=== PATIENT | female | born 1955 | race African-American/Black ===

== ENCOUNTER 2018-06-28 12:25 | Inpatient (IN) | payer OTHER ==
--- NOTE | 2018-06-28 13:58 | RAD REPORT ---
EXAM DESCRIPTION: CT - Head Brain Wo Cont - 06/28/2018 1:30 pm CLINICAL HISTORY: Transient alteration of awareness COMPARISON: CT head July 2014 TECHNIQUE: Axial 5 mm thick images of the head were obtained without IV contrast. All CT scans are performed using dose optimization technique as appropriate and may include automated exposure control or mA/KV adjustment according to patient size. FINDINGS: No acute intracranial hemorrhage is present. There is is a large CSF collection filling th e anterior cranial fossa on the left. Patient has either cystic encephalomalacia or resection of the left frontal lobe. There are postsurgical changes overlying the left frontal bone. Patient has signif icant underlying atrophy and chronic ischemic changes with progressive volume loss since 2014. No acu te cerebral edema findings. There is no cortical edema or sulcal effacement. Ventricles have increase d in proportion to the amount of volume loss. Chronic ischemic changes are also seen as progressive. A 12 millimeter hyperdense rounded mass is present along the floor of the left anterior cranial fossa within remnant of left frontal lobe. There is a 2 centimeter heterogeneous predominantly hyperdense mass along the medial margin of the frontal horn lateral ventricle. This could be in the right fronta l lobe or genu of the corpus callosum. Mass may be contiguous with the left frontal lobe mass as a si ngle hourglass shaped mass. This is new from prior imaging. Etiology of the mass is unknown. No histo ry is available as to the reason for the left frontal surgical changes. Mastoid air cells and visualized portions of the paranasal sinuses are clear. No acute bony findings. IMPRESSION: No hemorrhage, edema or acute intracranial finding seen. Large area of cystic encephalomalacia/left frontal lobe resection matching prior imaging. New mass or masses present along the anterior midline. There is a 2 centimeter mass in the region of the genu corpus callosum and in the medial floor of remnant left frontal lobe tissue. This may be 2 a djacent masses or a single hourglass shaped mass. Etiology of the mass is unknown. There is no significant mass effect or edema related to this mass wh ich is probably unrelated to the acute clinical presentation. Patient has advanced atrophy and chronic ischemic change that has progressed since 2014.
--- NOTE | 2018-06-28 14:11 | RAD REPORT ---
EXAM DESCRIPTION: RAD - Chest Single View - 06/28/2018 1:38 pm CLINICAL HISTORY: Anorexia, mole A's, declining state COMPARISON: April 2014 TECHNIQUE: AP portable chest image was obtained 1334 hour . FINDINGS: Is interstitial alveolar opacification is present in the left lung base. Lung tomas are o therwise clear of an acute process. A few small granulomas are present. Baseline interstitial pattern is not substantially different from comparison. Heart and vasculature are normal. No measurable pleu ral effusion and no pneumothorax. No acute bony abnormality seen. No acute aortic findings suspected. IMPRESSION: Small to moderate size left lower lung field pneumonia.
[2018-06-28] MEDS ORDERED: NA CHLORIDE 0.9% 1,000 ML ONE (14:13)
[2018-06-28 14:14] LABS: Barbiturates NEGATIVE (NEGATIVE); Benzodiazepines NEGATIVE (NEGATIVE); Cocaine NEGATIVE (NEGATIVE); METHAMPHETAM NEGATIVE (NEGATIVE); Methadone NEGATIVE (NEGATIVE); Opiates NEGATIVE (NEGATIVE); Phencyclidine NEGATIVE (NEGATIVE); THC Cannibis NEGATIVE (NEGATIVE)
[2018-06-28 14:15] LABS: Urine Amorphous Sediment 2+ /HPF (NONE SEEN); Urine Bacteria <20 /HPF (<20); Urine Culture Reflex Order NOT NEEDED; Urine Mucus 2+ /HPF (NONE SEEN)
[2018-06-28 14:16] LABS: Urine Blood TRACE (NEG); Urine Glucose NEGATIVE (NEG); Urine Protein 1+ (NEG); Urine Specific Gravity 1.015 (1.005-1.030)
[2018-06-28 14:18] LABS: Protime INR 3.38
[2018-06-28 14:54] LABS: Albumin 2.6 g/dL (3.4-5.0); Bilirubin Direct 0.2 mg/dL (0-0.2); Bilirubin Total 0.6 mg/dL (0.2-1.0); Magnesium 3.4 mg/dL (1.8-2.4); Potassium 4.1 mmol/L (3.5-5.1); Protein, Total 8.8 g/dL (6.4-8.2); Troponin (Emerg Dept Use Only) 0.04 ng/mL (0.0-0.045)
[2018-06-28 15:15] LABS: Absolute Lymphocytes (CBC) 1.2 K/uL (0.7-4.9); Absolute Neutrophil 8.6 K/uL (1.8-8.0); Basophils % 0.2 % (0-1.3); Eosinophils % 0.1 % (0-4.4); Hematocrit 43.3 % (36.0-45.0); Lymphocytes % 10.8 % (15.3-44.8); MPV 11.9 fL (7.6-11.3); Monocytes % 9.1 % (3.3-12.3); RBC Red Blood Cell Count 5.24 M/uL (3.86-4.86)
[2018-06-28] MEDS ORDERED: CEFTRIAXONE/SWI 1gm 1 GM/10 ML SYR ONE ×2 (15:59→16:08)
[2018-06-28] MEDS ORDERED: AZITHROMYCIN 500 MG/250 ML BAG ONE (15:59)
[2018-06-28 16:27] LABS: Anisocytosis 1+; Blood Morphology Comment NOTED (NOT SEEN); Platelet Estimate ADEQ; Platelets, Giant FEW; Poikilocytosis 1+; Smudge Cells PRESENT; Toxic Granulation NOTED
[2018-06-28 16:30] LABS: Burr Cells 1+
--- NOTE | 2018-06-28 16:32 | ER ---
Nurse's Notes [facility] Name: Clemencia Terry Age: 63 yrs Sex: Female : 1955 Arrival Date: 06/28/2018 Time: 12:32 Bed 6 Private MD: Diagnosis: Hypernatremia;Hyperchloremia;dehydration;Acute Left Lower lobe Pneumonia Presentation: 06/28 12:32 Presenting complaint: EMS states: Pt has not eaten in 5 days, family wants a PEG tube jl7 placed. Transition of care: patient was received from another setting of care (long-term care facility)[facility]. Onset of symptoms was June 28, 2018. Risk Assessment: Do you want to hurt yourself or someone else? Patient reports no desire to harm self or others. Initial Sepsis Screen: Does the patient meet any 2 criteria? No. Patient's initial sepsis screen is negative. Does the patient have a suspected source of infection? No. Patient's initial sepsis screen is negative. Care prior to arrival: IV initiated. 22 GA, in the right antecubital area. 12:32 [email or web address] 12:32 Acuity: KAUSHIK 3 jl7 Triage Assessment: 12:38 General: Appears in no apparent distress. uncomfortable, Behavior is calm. Pain: Unable [facility] to use pain scale. Does not appear to understand pain scale. EENT: No signs and/or symptoms were reported regarding the EENT system. Neuro: Level of Consciousness is awake, alert. Cardiovascular: Patient's skin is warm and dry. Respiratory: Airway is patent Respiratory effort is even, unlabored, Respiratory pattern is regular, symmetrical. GI: Abdomen is flat, non-distended. Derm: Skin is dry, Skin is normal, Skin temperature is warm. Historical: - Allergies: 12:36 No Known Allergies; jl7 - Home Meds: 12:38 atorvastatin 40 mg oral tab 1 tab once daily [Active]; famotidine 20 mg Oral tab 1 tab jl7 2 times per day [Active]; Remeron 15 mg Oral tab 1 tab once daily [Active]; - PMHx: 12:36 TIA; Depression; Hyperlipidemia; Mental Disorder; jl7 - PSHx: 12:36 Cholecystectomy; Malignant brain tumor removed; jl7 - Immunization history:: Adult Immunizations up to date. - Social history:: Smoking status: Patient/guardian denies using tobacco. - Ebola Screening: : No symptoms or risks identified at this time. - Family history:: not pertinent. - Hospitalizations: : No recent hospitalization is reported. - History obtained from: daughter, [place] record. Screenin:15 Abuse screen: Denies threats or abuse. Denies injuries from another. Nutritional jl7 screening: No deficits noted. Tuberculosis screening: No symptoms or risk factors identified. Fall Risk IV access (20 points). Total Luong Fall Scale indicates No Risk (0-24 pts). Assessment: 12:40 General: See triage assessment. jl7 13:15 Reassessment: Rosmery Terry is the pt's POA, , and states "She failed a jl7 swallow study and that's why we are getting the feeding tube." POA transferred to Dr. Rivera at this time. 14:30 Reassessment: Patient appears in no apparent distress at this time. No changes from jl7 previously documented assessment. Patient and/or family updated on plan of care and expected duration. Pain level reassessed. Patient is alert, oriented x 3, equal unlabored respirations, skin warm/dry/pink. 15:30 Reassessment: Patient appears in no apparent distress at this time. Patient is alert, jl7 oriented x 3, equal unlabored respirations, skin warm/dry/pink. 16:30 Reassessment: Pt laying in bed, respirations even and unlabored, no signs of distress jl7 noted at this time. Pt's POA Rosmery Terry at bedside. Dr. Rivera discussed POC with POA. 17:41 Reassessment: Pt to MRI via stretcher. jl7 17:51 Reassessment: Pt returned from MRI. Pt's daughter, sister and friend at bedside at this jl7 time. No signs of distress noted. 18:17 Reassessment: Attempted to call report, placed on hold for 10 minutes. jl7 20:21 Reassessment: Report given to CAMPBELL Izaguirre. ao Vital Signs: 12:38 BP 144 / 100; Pulse 110; Resp 22 S; Pulse Ox 96% on R/A; jl7 13:30 BP 145 / 82; Pulse 109; Resp 16 S; Temp 98.5(A); Pulse Ox 99% on R/A; jl7 14:12 BP 161 / 82; Pulse 113; Resp 16 S; Pulse Ox 100% on R/A; jl7 15:30 BP 158 / 82; Pulse 107; Resp 19; Pulse Ox 100% ; jl7 16:01 BP 157 / 65; Pulse 99; Resp 16 S; Pulse Ox 99% on R/A; jl7 16:45 BP 151 / 69; Pulse 95; Resp 16 S; Pulse Ox 100% on R/A; jl7 17:40 BP 142 / 85; Pulse 102; Resp 16 S; Pulse Ox 100% on R/A; jl7 19:24 BP 150 / 74; Pulse 96; Resp 16; Pulse Ox 100% ; Pain 0/10; ao ED Course: 12:32 Patient arrived in ED. jl7 12:34 Triage completed. jl7 12:38 Arm band placed on right wrist. jl7 12:39 Roel Rivera MD is Attending Physician. wa 13:05 Skin assessment. aj 13:15 Patient has correct armband on for positive identification. Placed in gown. Bed in low jl7 position. Call light in reach. Side rails up X2. cafeteria monitor on. Pulse ox on. NIBP on. Warm blanket given. 13:20 Greg Hampton RN is Primary Nurse. jl7 13:31 CT Head Brain wo Cont In Process Unspecified. EDMS 13:31 CT completed. Patient tolerated procedure well. Patient moved to CT via stretcher. sj Patient moved back from CT. 13:34 X-ray completed. Portable x-ray completed in exam room. Patient tolerated procedure mh1 well. 13:36 Chest Single View XRAY In Process Unspecified. EDMS 13:39 EKG done, by agriculture laboratory technician. reviewed by Roel Rivera MD. tc 14:12 Initial lab(s) drawn, by ct, sent to lab. Straight cath inserted, using sterile jl7 technique, 16 Fr. Specimen obtained. Returned zaire urine. Patient tolerated poorly. Inserted saline lock: 22 gauge in right antecubital area, using aseptic technique. Blood collected. 16:29 Tashi Berg MD is Hospitalizing Provider. wa 17:32 Patient moved to MRI via stretcher. em2 17:39 Brain Wo Cont In Process Unspecified. EDMS 19:00 Report given to CAMPBELL Haskins and CAMPBELL Lopez. jl7 19:01 Primary Nurse role handed off by Greg Hampton RN jl7 19:23 John Quiroga RN is Primary Nurse. ao 20:22 Patient admitted, IV remains in place. ao Administered Medications: 14:11 Drug: NS 0.9% 1000 ml Route: IV; Rate: 1 bolus; Site: right antecubital; jl7 15:30 Follow up: IV Status: Completed infusion jl7 15:50 Drug: Rocephin 2 grams Route: IV; Rate: calculated rate; Site: right antecubital; jl7 15:54 Follow up: Response: No adverse reaction; IV Status: Completed infusion jl7 15:55 Drug: Zithromax 500 mg Route: IVPB; Infused Over: 1 hrs; Site: right antecubital; jl7 16:55 Follow up: Response: No adverse reaction; IV Status: Completed infusion jl7 15:55 Not Given (Duplicate Order): Rocephin - (cefTRIAXone) 2 grams IVPB once over 30 mins; jl7 (mix in 100 mL NS) Outcome: 16:31 Decision to Hospitalize by Provider. wa 20:21 Admitted to Med/surg accompanied by tech, room 418, with chart, Report called to karuna Izaguirre RN 20:21 Condition: stable 20:21 Instructed on the need for admit. 20:23 Patient left the ED. ao Signatures: Dispatcher [employer] EDMS Radha Us RN Nanci Moreno mh1 Iva Courtney Enrique 2 Laurel Thakur, welding machine operator electron beam EKG [facility] John Quiroga RN RN ao Leal, Jahala, RN RN jl7 Roel Rivera MD MD wa Corrections: (The following items were deleted from the chart) 17:43 16:30 Reassessment: Pt laying in bed, respirations even and unlabored, no signs of puma distress noted at this time. Pt's sister/POA Rosmery Terry at bedside. Dr. Rivera discussed POC with POA. puma
--- NOTE | 2018-06-28 16:32 | EDPHYS ---
Physician Documentation [facility] Name: Clemencia Terry Age: 63 yrs Sex: Female : 1955 Arrival Date: 06/28/2018 Time: 12:32 Bed 6 Private MD: ED Physician Roel Rivera HPI: 06/28 16:13 This 63 yrs old Black Female presents to ER via EMS with complaints of New PEG Tube. wa 16:13 pt non-verbal and unable to give a history at baseline. history obtained from [place] notes wa and pt's daughter (power of consumer attorney), Ms. Rosmery Terry. pt has not been eating x [address] Snyder (GI) for PEG but cannot see pt until 4 days from now so came to ED for further eval. Denies mental changes that are recent from baseline. denies SZ. denies cough, SOB, fever. denies vomiting or diarrhea. denies swelling. Onset: The symptoms/episode began/occurred 4 day(s) ago. Severity of symptoms: At their worst the symptoms were moderate in the emergency department the symptoms are unchanged. It is unknown whether or not the patient has had similar symptoms in the past. The patient has not recently seen a physician. h/o glioblastoma with lobar resection in 1993. has been in [place] x 4-1/2 years. per daughter, quit been able to express self or walk by self this past March. . Historical: - Allergies: 12:36 No Known Allergies; jl7 - Home Meds: 12:38 atorvastatin 40 mg oral tab 1 tab once daily [Active]; famotidine 20 mg Oral tab 1 tab jl7 2 times per day [Active]; Remeron 15 mg Oral tab 1 tab once daily [Active]; - PMHx: 12:36 TIA; Depression; Hyperlipidemia; Mental Disorder; jl7 - PSHx: 12:36 Cholecystectomy; Malignant brain tumor removed; jl7 - Immunization history:: Adult Immunizations up to date. - Social history:: Smoking status: Patient/guardian denies using tobacco. - Ebola Screening: : No symptoms or risks identified at this time. - Family history:: not pertinent. - Hospitalizations: : No recent hospitalization is reported. - History obtained from: daughter, [place] record. ROS: 16:25 Constitutional: Negative for fever, chills, and weight loss. wa 16:25 Unable to obtain ROS due to patient's inability to understand questions, non-verbal, non-communicative patient. Exam: 16:25 Head/Face: Normocephalic, atraumatic. Eyes: Pupils equal round and reactive to light, wa extra-ocular motions intact. Lids and lashes normal. Conjunctiva and sclera are non-icteric and not injected. Cornea within normal limits. Periorbital areas with no swelling, redness, or edema. ENT: Nares patent. No nasal discharge, no septal abnormalities noted. Tympanic membranes are normal and external auditory canals are clear. Oropharynx with no redness, swelling, or masses, exudates, or evidence of obstruction, uvula midline. Mucous membranes moist. Neck: Trachea midline, no thyromegaly or masses palpated, and no cervical lymphadenopathy. Supple, full range of motion without nuchal rigidity, or vertebral point tenderness. No Meningismus. Cardiovascular: Regular rate and rhythm with a normal S1 and S2. No gallops, murmurs, or rubs. Normal PMI, no JVD. No pulse deficits. Respiratory: Lungs have equal breath sounds bilaterally, clear to auscultation and percussion. No rales, rhonchi or wheezes noted. No increased work of breathing, no retractions or nasal flaring. Abdomen/GI: Soft, non-tender, with normal bowel sounds. No distension or tympany. No guarding or rebound. No evidence of tenderness throughout. Back: No spinal tenderness. No costovertebral tenderness. Full range of motion. MS/ Extremity: Pulses equal, no cyanosis. Neurovascular intact. Full, normal range of motion. 16:25 Constitutional: The patient appears alert. 16:25 ENT: Posterior pharynx: very dry mucosa. 16:25 Skin: noted 2 small areas of stage 1 gluteal ulcers. dressing in place. no swelling, redness, or pus exudate. Dry. 16:25 Neuro: alert. tracks doctor's voice and actions. does not speak or respond appropriately to commands however. Vital Signs: 12:38 BP 144 / 100; Pulse 110; Resp 22 S; Pulse Ox 96% on R/A; jl7 13:30 BP 145 / 82; Pulse 109; Resp 16 S; Temp 98.5(A); Pulse Ox 99% on R/A; jl7 14:12 BP 161 / 82; Pulse 113; Resp 16 S; Pulse Ox 100% on R/A; jl7 15:30 BP 158 / 82; Pulse 107; Resp 19; Pulse Ox 100% ; jl7 16:01 BP 157 / 65; Pulse 99; Resp 16 S; Pulse Ox 99% on R/A; jl7 16:45 BP 151 / 69; Pulse 95; Resp 16 S; Pulse Ox 100% on R/A; jl7 17:40 BP 142 / 85; Pulse 102; Resp 16 S; Pulse Ox 100% on R/A; jl7 19:24 BP 150 / 74; Pulse 96; Resp 16; Pulse Ox 100% ; Pain 0/10; ao MDM: 12:39 Patient medically screened. md 16:28 Differential Diagnosis failure to thrive? r/o acute pathology to explain acute baseline md changes of status. reassess. Data reviewed: vital signs, nurses notes. 16:32 Test interpretation: by ED physician or midlevel provider: ECG, plain radiologic md studies, noted for elevated CPK, AST, Alk Phos. Elevated Cr. Na. Cl. Elevated INR. CXR: LLL pna. Head CT: 2 new mass lesions, 2 cm and [address] from 2014. . Physician consultation: Tashi Berg MD. Admission orders: after a detailed discussion of the patient's condition and case, the admit orders are written by me. 16:33 ED course: received a liter of saline initially. will admit for eval of hypernatremia wa with slow resuscitation to avoid cerebral edema. abx given to cover pna. will need consultation with GI for PEG. pt apparently had failed a swallow study in [place]. Daughter with power of consumer attorney states her family will not push for aggressive tumor treatment. 17:51 Test interpretation: by ED physician or midlevel provider: EKG: interp by me. sinus md tach. HR 108. inferior lateral ST depressions noted. consider ischemia. 06/28 13:12 Order name: UDS; Complete Time: 14:57 md 06/28 13:12 Order name: Basic Metabolic Panel; Complete Time: 15:12 06/28 13:12 Order name: CBC with Diff md 06/28 13:12 Order name: CPK; Complete Time: 16:09 06/28 13:12 Order name: Hepatic Function; Complete Time: 16:09 06/28 13:12 Order name: Lipase; Complete Time: 16:09 06/28 13:12 Order name: CT Head Brain wo Cont; Complete Time: 14:57 06/28 13:12 Order name: Magnesium; Complete Time: 16:09 06/28 13:12 Order name: Protime (+inr); Complete Time: 14:57 06/28 13:12 Order name: Troponin (emerg Dept Use Only); Complete Time: 16:09 06/28 13:12 Order name: Urine Microscopic Only; Complete Time: 14:57 06/28 13:13 Order name: Chest Single View XRAY; Complete Time: 15:11 06/28 14:03 Order name: Urine Dipstick--Ancillary (enter results); Complete Time: 14:57 06/28 15:16 Order name: Manual Differential EDMS 06/28 13:12 Order name: EKG; Complete Time: 13:13 06/28 13:12 Order name: Cardiac monitoring; Complete Time: 14:12 06/28 13:12 Order name: EKG - Nurse/Tech; Complete Time: 14:12 06/28 13:12 Order name: IV Saline Lock; Complete Time: 14:12 06/28 13:12 Order name: Labs collected and sent; Complete Time: 14:11 06/28 13:12 Order name: NPO; Complete Time: 14:11 06/28 13:12 Order name: O2 Sat Monitoring; Complete Time: 14:11 06/28 13:12 Order name: Urine Dipstick-Ancillary (obtain specimen); Complete Time: 14:11 06/28 16:29 Order name: Brain Wo Cont EDMS Administered Medications: 14:11 Drug: NS 0.9% 1000 ml Route: IV; Rate: 1 bolus; Site: right antecubital; jl7 15:30 Follow up: IV Status: Completed infusion jl7 15:50 Drug: Rocephin 2 grams Route: IV; Rate: calculated rate; Site: right antecubital; jl7 15:54 Follow up: Response: No adverse reaction; IV Status: Completed infusion jl7 15:55 Drug: Zithromax 500 mg Route: IVPB; Infused Over: 1 hrs; Site: right antecubital; jl7 16:55 Follow up: Response: No adverse reaction; IV Status: Completed infusion jl7 15:55 Not Given (Duplicate Order): Rocephin - (cefTRIAXone) 2 grams IVPB once over 30 mins; jl7 (mix in 100 mL NS) Disposition: 06/28/18 16:31 Hospitalization ordered by Tashi Berg for Inpatient Admission. Preliminary diagnosis are Hypernatremia, Hyperchloremia, dehydration, Acute Left Lower lobe Pneumonia. - Bed requested for Telemetry/MedSurg (Inpatient). - Status is Inpatient Admission. ao - Condition is Fair. - Problem is new. - Symptoms have improved. UTI on Admission? No Signatures: Dispatcher [employer] EDMS Elma Hinojosa Alex RN Greg Montelongo RN RN jl7 Roel Rivera MD MD wa Corrections: (The following items were deleted from the chart) 17:53 16:31 Hospitalization Ordered by Tashi Berg MD for Inpatient Admission. Preliminary bd diagnosis is Hypernatremia; Hyperchloremia; dehydration; Acute Left Lower lobe Pneumonia. Bed requested for Telemetry/MedSurg (Inpatient). Status is Inpatient Admission. Condition is Fair. Problem is new. Symptoms have improved. UTI on Admission? No. wa 20:23 17:53 06/28/2018 16:31 Hospitalization Ordered by Tashi Berg MD for Inpatient ao Admission. Preliminary diagnosis is Hypernatremia; Hyperchloremia; dehydration; Acute Left Lower lobe Pneumonia. Bed requested for Telemetry/MedSurg (Inpatient). Status is Inpatient Admission. Condition is Fair. Problem is new. Symptoms have improved. UTI on Admission? No. bd
--- NOTE | 2018-06-28 17:07 | EKG ---
Test Date: 2018-06-28 Test Time: 13:32:48 Therapeutic Recreation Assistant: SANDY MEASUREMENT RESULTS: Intervals: Rate: 108 NJ: 124 QRSD: 82 QT: 314 QTc: 420 [place]: P: 75 NJ: 124 QRS: 55 T: 79 INTERPRETIVE STATEMENTS: Sinus tachycardia Right atrial enlargement Marked ST abnormality, possible inferior subendocardial injury Abnormal ECG Compared to ECG 08/15/2014 08:12:03 Atrial abnormality now present ST (T wave) deviation now present Sinus rhythm no longer present Electronically Signed On 06-28-18 17:06:44 SET UP AND LAY OUT INSPECTOR by Max Plata
--- NOTE | 2018-06-28 20:25 | RAD REPORT ---
EXAM DESCRIPTION: MRI - Brain Wo Cont - 06/28/2018 5:44 pm CLINICAL HISTORY: Abnormal CT, altered mental status, slurred speech, declining state Since the earlier CT study, additional clinical information has become available indicating history o f glioblastoma with resection COMPARISON: CT head June 28, 2018, MRI brain April 2014 TECHNIQUE: Sagittal T1-weighted images were obtained along with axial PD, heavily T2-weighted and T2 -FLAIR images. Axial DWI and ADC mapping sequences were also obtained along with coronal heavily T2-w eighted images. FINDINGS: Diffusion-weighted imaging shows no acute infarction change. Again noted is the large post surgical cavity from resection of most of the left frontal lobe. The large cystic postoperative cavit y communicates with the frontal horn left lateral ventricle. Patient has baseline significant atrophy and chronic ischemic change. Extensive baseline white matter signal abnormality in both the right fr ontal lobe and remnant left frontal lobe. No edema or shift of midline structures. Signal voids are seen as a normal finding in the major intra cranial vessels. In the medial left-side anterior cranial fossa, within the remnant left frontal lobe, there is a 2.0 x 1.4 centimeter lobulated mass. Along the anterior midline, probably involving or arising from the g enu of the corpus callosum there is a 20 x 18 lobulated mass. These are the correlates to the CT find ing. The masses are in close proximity but are not a definitive single lesion. Imaging characteristic s are identical. There is a hypointense peripheral rim on T2/IR sequences. Both masses are centrally hyperintense on T2 imaging. T1 imaging is heterogeneous with peripheral hyperintense and central hypo intense signal. Mastoid air cells and paranasal sinuses are clear. No acute globe or orbital content abnormality. IMPRESSION: Within the remnant left frontal lobe and in the midline at the genu of the corpus callos um, two lobulated masses are present as correlates to the CT findings. 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 These may have developed as the sequela of radiati on therapy. The imaging characteristics are not typical for malignancy. Neither lesion is felt to be related to the acute clinical presentation. No acute infarction changes are present. Patient has prominent atrophy and chronic ischemic changes i n addition to the postsurgical and post therapy changes involving the frontal lobes.
[2018-06-28 21:05] VITALS: BMI 18.1
[2018-06-28] MEDS ORDERED: D5 0.45 NS 1,000 ML IV SCH (22:09)
[2018-06-29 04:44] LABS: Absolute Lymphocytes (CBC) 1.2 K/uL (0.7-4.9); Absolute Neutrophil 10.2 K/uL (1.8-8.0); Basophils % 0.1 % (0-1.3); Eosinophils % 0.3 % (0-4.4); Hematocrit 34.9 % (36.0-45.0); Lymphocytes % 9.7 % (15.3-44.8); MPV 10.9 fL (7.6-11.3); Monocytes % 8.2 % (3.3-12.3); RBC Red Blood Cell Count 4.26 M/uL (3.86-4.86)
[2018-06-29 05:02] LABS: Albumin 2.1 g/dL (3.4-5.0); Bilirubin Total 0.4 mg/dL (0.2-1.0); Potassium 3.4 mmol/L (3.5-5.1)
[2018-06-29] MEDS ORDERED: D5W 1,000 ML IV SCH ×2 (06:00)
[2018-06-29] MEDS: KCL 20 MEQ/100 mL IVPB 20 MEQ/100 ML BAG IV SCH ×2 (08:00→10:00)
--- NOTE | 2018-06-29 09:49 | P.HP ---
Certification for Inpatient Patient admitted to: Inpatient With expected LOS: >2 Midnights Patient will require the following post-hospital care: Other Practitioner: I am a practitioner with admitting privileges, knowledge of patient current condition, hospital course, and medical plan of care. Services: Services provided to patient in accordance with Admission requirements found in Title 42 Section 412.3 of the Code of Federal Regulations Patient History Date of Service: 06/28/18 Reason for admission: DYSPHAGIA History of Present Illness: PATIENT IS A 63-YEAR-OLD FEMALE WHO LIVES AT A [facility]. SHE IS IN THE [facility] BECAUSE OF TREATMENT FOR BRAIN CANCER WITH SECONDARY RADIATION AND EARLY DEMENTIA. SHE APPARENTLY HAS NECROTIC BRAIN TISSUE BECAUSE OF THE RADIATION. HER NEUROLOGIC STATUS HAS SLOWLY BEEN DECLINING. SHE STARTED ASPIRATING AND SHE WAS SENT INTO THE HOSPITAL FOR EVALUATION. HER LABS ALSO REVEALED HYPERNATREMIA. SHE WILL BE ADMITTED TO THE HOSPITAL FOR TREATMENT OF THE HYPERNATREMIA AND DYSPHAGIA. WILL GET GENERAL SURGERY FOR PEG TUBE PLACEMENT. Allergies No Known Drug Allergies Allergy (Verified 05/14/14 20:24) Unknown No Known Allergies Allergy (Uncoded 08/31/14 00:56) Unknown Home Medications: Atorvastatin Calcium [Lipitor*] 40 mg PO BEDTIME 12/02/13 Famotidine [Pepcid*] 20 mg PO BID 05/14/14 Acetaminophen [Tylenol] 650 mg PO Q4HP PRN 06/29/18 Aspirin Chewable [Aspirin Chewable*] 81 mg PO DAILY 06/29/18 Hydrocortisone Cream [Hydrocortisone 1% Cream*] 1 appl TOP Q4HP PRN 06/29/18 Methylphenidate HCl [Ritalin] 5 mg PO DAILY 06/29/18 Mirtazapine [Remeron*] 15 mg PO BEDTIME 06/29/18 Potassium Chloride Liquid 10 meq PO DAILY 06/29/18 traMADol HCL [Ultram*] 50 mg PO Q8HP PRN 06/29/18 - Past Medical/Surgical History Has patient received pneumonia vaccine in the past: Yes Diabetic: No -: TIA -: Cutaneous Candidiasis -: Cancer of Brain -: Hyperlipidemia -: Brain tumor removal -: gall bladder stones removed -: tubal ligation - Family History Father Medical History: Heart disease, Diabetes, Kidney disease, Other (see notes) Notes: Alzheimers Mother Medical History: Hypertension Brother Medical History: Heart disease Notes: cardiac stent - Social History Smoking Status: Never smoker Alcohol use: No CD- Drugs: No Caffeine use: No Place of Residence: [place] Review of Systems 10-point ROS is otherwise unremarkable Physical Examination - Vital Signs Temperature: 97 F Blood Pressure: 140/60 Pulse: 82 Respirations: 18 Pulse Ox (%): 100 - Physical Exam General: Alert, In no apparent distress, Demented HEENT: Atraumatic, PERRLA, Mucous membr. moist/pink, EOMI, Sclerae nonicteric Neck: Supple, 2+ carotid pulse no bruit, No LAD, Without JVD or thyroid abnormality Respiratory: Clear to auscultation bilaterally, Normal air movement Cardiovascular: Regular rate/rhythm, Normal S1 S2, No murmurs Gastrointestinal: Normal bowel sounds, Soft and benign, Non-distended, No tenderness Musculoskeletal: No clubbing, No swelling, No tenderness Integumentary: No rashes Neurological: Sensation intact Lymphatics: No axilla or inguinal lymphadenopathy - Studies Laboratory Data (last 24 hrs) 06/28/18 14:00: PT 40.4 H, INR 3.38 06/28/18 14:00: WBC 10.8, Hgb 13.7, Hct 43.3, Plt Count 289 06/28/18 14:00: Sodium 168 H*, Potassium 4.1, BUN 117 H, Creatinine 1.56 H, Glucose 111 H, Magnesium 3.4 H, Total Bilirubin 0.6, AST 73 H, ALT 54, Alkaline Phosphatase 150 H, Lipase 502 H Assessment & Plan - Problems (Diagnosis) (1) Hypernatremia Current Visit: Yes Status: Acute (2) Cerebral vascular accident Current Visit: No Status: Acute (3) Confusion Onset Date: 05/14/14 Current Visit: No Status: Acute (4) Falls Onset Date: 05/14/14 Current Visit: No Status: Acute (5) Rhabdomyolysis Current Visit: No Status: Acute (6) Urinary tract infectious disease Current Visit: No Status: Acute - Plan 1. SURGERY CONSULTATION FOR PEG TUBE PLACEMENT 2. D5 WATER TO CORRECT SODIUM 3. SLIDING SCALE INSULIN NEEDED 4. MONITOR RENAL FUNCTION CLOSELY 5. DVT PROPHYLAXIS Discharge Plan: Home Plan to discharge in: 24 Hours - Advance Directives Does patient have a Living Will: No Does patient have a Durable POA for Healthcare: No - Code Status/Comfort Care Code Status Assessed: Yes Code Status: Full Code Comfort Measures: Palliative Care Critical Care: No Time Spent Managing PTS Care (In Minutes): 45
[2018-06-29 12:04] LABS: Potassium 3.2 mmol/L (3.5-5.1)
--- NOTE | 2018-06-29 16:25 | P.PN ---
Subjective Date of Service: 06/29/18 Chief Complaint: DYSPHAGIA Subjective: No new changes Patient seen and examined at bedside. Daughter at bedside. Chart reviewed and case discussed with nursing staff. Physical Examination - Vital Signs Temperature: 97 F Blood Pressure: 140/60 Pulse: 82 Respirations: 18 Pulse Ox (%): 100 - Studies Laboratory Data (last 24 hrs) 06/28/18 14:00: WBC 10.8 Assessment And Plan - Plan (1) Hypernatremia (2) Cerebral vascular accident (3) Confusion (4) Falls (5) Rhabdomyolysis (6) Urinary tract infectious disease Continue D5 water to correct sodium General surgery consulted for PEG tube placement. Will get in touch with surgery after electrolytes are improving Sliding scale insulin as needed Monitor renal function closely Fall precaution Discussed with family regarding goals of care. Daughter states that she is to full code at this time. They are waiting for patient's other son to come back from the [employer] to make further decisions. DVT prophylaxis: Lovenox GI prophylaxis: None Diet: NPO Disposition: Pending electrolyte correction, possible PEG placement by surgery.
[2018-06-29] MEDS: D5W 1,000 ML IV SCH ×2 (19:00→21:57)
[2018-06-29 21:41] LABS: BUN Blood Urea Nitrogen 60 mg/dL (7-18); Bicarbonate 29 mmol/L (21-32); Glucose Level 121 mg/dL (74-106); Potassium 3.8 mmol/L (3.5-5.1)
[2018-06-29 22:12] LABS: Sodium Level 164 mmol/L (136-145)
[2018-06-30 03:35] LABS: Absolute Lymphocytes (CBC) 1.4 K/uL (0.7-4.9); Absolute Monocytes 0.8 K/uL (0.1-1.3); Basophils % 0.5 % (0-1.3); Eosinophils % 2.9 % (0-4.4); Hematocrit 29.1 % (36.0-45.0); Lymphocytes % 12.1 % (15.3-44.8); MPV 11.2 fL (7.6-11.3); Monocytes % 6.6 % (3.3-12.3); RBC Red Blood Cell Count 3.55 M/uL (3.86-4.86)
[2018-06-30 03:49] LABS: ALT/SGPT 50 U/L (12-78); AST/SGOT 48 U/L (15-37); Alkaline Phosphatase 114 U/L (45-117); BUN Blood Urea Nitrogen 49 mg/dL (7-18); Bicarbonate 27 mmol/L (21-32); Bilirubin Total 0.6 mg/dL (0.2-1.0); Glucose Level 142 mg/dL (74-106); Potassium 3.5 mmol/L (3.5-5.1); Sodium Level 159 mmol/L (136-145)
[2018-06-30] MEDS ORDERED: KCL 20 MEQ/100 mL IVPB 20 MEQ/100 ML BAG IV SCH ×2 (04:00→13:00)
[2018-06-30 04:42] LABS: Blood Morphology Comment NOT SEEN (NOT SEEN); Platelet Estimate ADEQ
[2018-06-30] MEDS: D5W 1,000 ML IV SCH ×2 (06:33→17:07)
--- NOTE | 2018-06-30 16:11 | P.PN ---
Subjective Date of Service: 06/30/18 Chief Complaint: DYSPHAGIA Subjective: No C/O voiced Patient seen and examined at bedside. Daughter at bedside. Chart reviewed and case discussed with nursing staff. Patient a little more alert than yesterday. Per daughter, patient did speak a little to the daughter this morning. Review of Systems 10-point ROS is otherwise unremarkable Physical Examination - Vital Signs Temperature: 97.1 F Blood Pressure: 121/86 Pulse: 76 Respirations: 20 Pulse Ox (%): 99 - Physical Exam General: In no apparent distress, Unresponsive (Worse than baseline), Other ( Ill appearing) HEENT: PERRLA, EOMI Neck: Supple, JVD not distended Respiratory: Clear to auscultation bilaterally, Normal air movement Cardiovascular: Regular rate/rhythm, Normal S1 S2 Gastrointestinal: Normal bowel sounds, No tenderness Musculoskeletal: No tenderness Integumentary: No rashes Neurological: Normal speech, Normal tone, Normal affect Lymphatics: No axilla or inguinal lymphadenopathy Assessment And Plan - Plan (1) Hypernatremia (2) Cerebral vascular accident (3) Confusion (4) Falls (5) Rhabdomyolysis (6) Urinary tract infectious disease Continue D5 water to correct sodium, at 100 cc/hour General surgery consulted for PEG tube placement. Will get in touch with surgery after electrolytes are improving Sliding scale insulin as needed Monitor renal function closely Fall precaution Speech therapy consultation Discussed with family regarding goals of care. Daughter states that she is to remain a full code at this time. They are waiting for patient's other son to come back from the [employer] to make further decisions. DVT prophylaxis: Lovenox GI prophylaxis: None Diet: NPO Disposition: Pending electrolyte correction, possible PEG placement by surgery.
[2018-07-01] MEDS: D5W 1,000 ML IV SCH ×3 (06:02→19:53)
[2018-07-01 06:17] LABS: Absolute Lymphocytes (CBC) 1.5 K/uL (0.7-4.9); Absolute Monocytes 0.6 K/uL (0.1-1.3); Basophils % 0.1 % (0-1.3); Hematocrit 27.3 % (36.0-45.0); Lymphocytes % 12.9 % (15.3-44.8); MPV 11.5 fL (7.6-11.3); Monocytes % 5.6 % (3.3-12.3); RBC Red Blood Cell Count 3.37 M/uL (3.86-4.86)
[2018-07-01 06:21] LABS: ALT/SGPT 38 U/L (12-78); AST/SGOT 33 U/L (15-37); Albumin 1.9 g/dL (3.4-5.0); Alkaline Phosphatase 97 U/L (45-117); BUN Blood Urea Nitrogen 17 mg/dL (7-18); Bicarbonate 28 mmol/L (21-32); Bilirubin Total 0.7 mg/dL (0.2-1.0); Glucose Level 122 mg/dL (74-106); Potassium 3.6 mmol/L (3.5-5.1); Protein, Total 5.7 g/dL (6.4-8.2); Sodium Level 152 mmol/L (136-145)
[2018-07-01 07:31] LABS: Platelet Estimate ADEQ; Toxic Granulation 1+; Urine White Blood Cell Casts OK
[2018-07-01 07:32] LABS: Ovalocytes 1+
[2018-07-01 07:33] LABS: Blood Morphology Comment NOTED (NOT SEEN)
[2018-07-01] MEDS ORDERED: KCL 20 MEQ/100 mL IVPB 20 MEQ/100 ML BAG IV SCH (08:00)
--- NOTE | 2018-07-01 11:28 | P.PN ---
Subjective Date of Service: 07/01/18 Chief Complaint: DYSPHAGIA Subjective: No new changes, No C/O voiced Patient seen and examined at bedside. Daughter at bedside. Chart reviewed and case discussed with nursing staff. Review of Systems 10-point ROS is otherwise unremarkable Physical Examination - Vital Signs Temperature: 98.2 F Blood Pressure: 132/63 Pulse: 78 Respirations: 18 Pulse Ox (%): 98 - Physical Exam General: In no apparent distress, Demented, Other (Not conversating) HEENT: PERRLA, Mucous membr. moist/pink Neck: 2+ carotid pulse no bruit Respiratory: Clear to auscultation bilaterally, Normal air movement Cardiovascular: Regular rate/rhythm Gastrointestinal: Normal bowel sounds Musculoskeletal: No clubbing, No swelling Integumentary: Skin breakdown Assessment And Plan - Plan (1) Hypernatremia (2) Cerebral vascular accident (3) Confusion (4) Falls (5) Rhabdomyolysis (6) Urinary tract infectious disease Continue D5 water to correct sodium, at 100 cc/hour. Improving General surgery consulted for PEG tube placement. Will get in touch with surgery after electrolytes are improving Sliding scale insulin as needed Monitor renal function closely Fall precaution Speech therapy consulted, pending Discussed with family regarding goals of care. Daughter states that she is to remain a full code at this time. They are waiting for patient's other son to come back from the [employer] to make further decisions. DVT prophylaxis: Lovenox GI prophylaxis: None Diet: NPO Disposition: Pending electrolyte correction, possible PEG placement by surgery.
[2018-07-01] MEDS: Levofloxacin500mg IV 500 MG/100 ML BAG IV SCH (12:48)
[2018-07-02] MEDS: D5W 1,000 ML IV SCH ×2 (02:36→16:52)
[2018-07-02 06:12] LABS: Absolute Lymphocytes (CBC) 1.1 K/uL (0.7-4.9); Absolute Monocytes 0.5 K/uL (0.1-1.3); Absolute Neutrophil 7.7 K/uL (1.8-8.0); Basophils % 0.2 % (0-1.3); Eosinophils % 2.6 % (0-4.4); Hematocrit 27.9 % (36.0-45.0); Monocytes % 5.4 % (3.3-12.3); RBC Red Blood Cell Count 3.49 M/uL (3.86-4.86)
[2018-07-02 06:21] LABS: ALT/SGPT 30 U/L (12-78); AST/SGOT 23 U/L (15-37); Albumin 1.9 g/dL (3.4-5.0); Alkaline Phosphatase 92 U/L (45-117); BUN Blood Urea Nitrogen 8 mg/dL (7-18); Bicarbonate 29 mmol/L (21-32); Bilirubin Total 0.6 mg/dL (0.2-1.0); Glucose Level 126 mg/dL (74-106); Magnesium 1.9 mg/dL (1.8-2.4); Phosphorus 2.3 mg/dL (2.5-4.9); Potassium 3.5 mmol/L (3.5-5.1); Sodium Level 149 mmol/L (136-145)
[2018-07-02] MEDS ORDERED: POTASSIUM PHOS IN 0.9 % NACL 15 MMOL/250 ML BAG IV ONE ×2 (06:33→09:00)
[2018-07-02] MEDS: Levofloxacin500mg IV 500 MG/100 ML BAG IV SCH (12:00)
--- NOTE | 2018-07-02 17:57 | P.PN ---
Subjective Date of Service: 07/02/18 Chief Complaint: DYSPHAGIA Subjective: No new changes Patient seen and examined at bedside. Daughter at bedside. Chart reviewed and case discussed with nursing staff. Review of Systems 10-point ROS is otherwise unremarkable Physical Examination - Vital Signs Temperature: 97.7 F Blood Pressure: 103/55 Pulse: 91 Respirations: 16 Pulse Ox (%): 99 - Physical Exam General: In no apparent distress, Demented, Confused HEENT: Atraumatic, PERRLA, EOMI Neck: Supple, JVD not distended Respiratory: Clear to auscultation bilaterally, Normal air movement Cardiovascular: Regular rate/rhythm, Normal S1 S2 Gastrointestinal: Normal bowel sounds, No tenderness Musculoskeletal: No tenderness Integumentary: No rashes Neurological: Normal speech, Normal tone, Normal affect Lymphatics: No axilla or inguinal lymphadenopathy Assessment And Plan - Plan (1) Hypernatremia (2) Cerebral vascular accident (3) Confusion (4) Falls (5) Rhabdomyolysis (6) Urinary tract infectious disease Continue D5 water to correct sodium, at 100 cc/hour. Improving General surgery consulted for PEG tube placement. Will get in touch with surgery after electrolytes are improving Sliding scale insulin as needed Monitor renal function closely Fall precaution Speech therapy consulted, pending Discussed with family regarding goals of care. Daughter states that she is to remain a full code at this time. They are waiting for patient's other son to come back from the [employer] to make further decisions. DVT prophylaxis: Lovenox GI prophylaxis: None Diet: NPO Disposition: Pending electrolyte correction, possible PEG placement by surgery.
[2018-07-03] MEDS: D5W 1,000 ML IV SCH ×4 (03:00→20:23)
[2018-07-03 06:05] LABS: Absolute Lymphocytes (CBC) 1.1 K/uL (0.7-4.9); Absolute Monocytes 0.5 K/uL (0.1-1.3); Absolute Neutrophil 6.6 K/uL (1.8-8.0); Basophils % 0.4 % (0-1.3); Lymphocytes % 13.1 % (15.3-44.8); MPV 10.2 fL (7.6-11.3); Monocytes % 5.5 % (3.3-12.3); RBC Red Blood Cell Count 3.44 M/uL (3.86-4.86)
[2018-07-03 06:17] LABS: BUN Blood Urea Nitrogen 6 mg/dL (7-18); Bicarbonate 28 mmol/L (21-32); Glucose Level 134 mg/dL (74-106); Potassium 3.5 mmol/L (3.5-5.1); Sodium Level 145 mmol/L (136-145)
[2018-07-03] MEDS ORDERED: KCL 20 MEQ/100 mL IVPB 20 MEQ/100 ML BAG IV SCH (08:00)
[2018-07-03] MEDS: Levofloxacin500mg IV 500 MG/100 ML BAG IV SCH (11:47)
--- NOTE | 2018-07-03 12:56 | P.PN ---
Subjective Date of Service: 07/03/18 Chief Complaint: DYSPHAGIA Subjective: No C/O voiced Patient seen and examined at bedside. Daughter at bedside. Chart reviewed and case discussed with nursing staff. Review of Systems 10-point ROS is otherwise unremarkable Physical Examination - Vital Signs Temperature: 97.6 F Blood Pressure: 115/61 Pulse: 92 Respirations: 16 Pulse Ox (%): 98 - Physical Exam General: Demented, Confused HEENT: Atraumatic, PERRLA, EOMI Neck: Supple, JVD not distended Respiratory: Clear to auscultation bilaterally, Normal air movement Cardiovascular: Regular rate/rhythm, Normal S1 S2 Gastrointestinal: Normal bowel sounds, No tenderness Assessment And Plan - Plan (1) Hypernatremia (2) Cerebral vascular accident (3) Confusion (4) Falls (5) Rhabdomyolysis (6) Urinary tract infectious disease Hypernatremia resolved. Will continue fluids for now. General surgery consulted for PEG tube placement. PEG placement scheduled for tomorrow. Sliding scale insulin Monitor renal function closely Fall precaution Speech therapy consulted, Unable to do bedside swallow study due to AMS and risk of aspiration. MBS done in custodial, results in chart. Failed MBS outpatient. Discussed with family regarding goals of care. Daughter states that she is to remain a full code at this time. They are waiting for patient's other son to come back from the [employer] to make further decisions. DVT prophylaxis: Lovenox GI prophylaxis: None Diet: NPO Disposition: pending PEG placement by surgery.
--- NOTE | 2018-07-03 14:39 | CON ---
Date of Consultation: 07/03/2018 Brief History Of Present Illness: The patient is a 63-year-old female, who [facility] d ue to history of a brain cancer with secondary radiation, early dementia. She had necrotic brain iss ues due to radiation and her neurologic status has been declining over the period of time since this initiated. She started aspirating and she was sent to the hospital for evaluation. She had a swallo w exam performed at the outside facility, which showed that she had significant aspiration episodes a nd it was recommended that she either have a modification of her diet or PEG tube placement. The [facility] has discussed the options and has decided that they would prefer for the patient to be fed throug h the nonoral route and have opted for a PEG tube for feeding as well as medications. She came in wi th significant electrolyte abnormalities, which have not been corrected for the most part and continu ed to be medically managed by Dr. Berg and the team, who have improved her overall status significan tly, however, she remains demented without any change in her mental status significantly. Allergies: NO KNOWN DRUG ALLERGIES. Home Medications: Include Lipitor, Pepcid, Tylenol, aspirin, hydrocortisone, Reglan, Remeron, potass ium chloride, Ultram. Past Medical History: Includes TIA, cutaneous candidiasis, brain cancer, hyperlipidemia. Past Surgical History: Gallbladder surgery open approach, brain tumor removal, and tubal ligation. Family History: Heart disease, diabetes, kidney disease. Mother had hypertension, heart disease, ca rdiac stents. Social History: No smoking, alcohol, or recreational drug use. All medical history is obtained by family and chart. Review of Systems: Ten-point review of systems unable to obtain. Physical Examination: Vital Signs: At the time of my examination, her BMI is 18, blood pressure 145/64, pulse of 91, respi ratory rate 16, temperature 97.9. General: She is awake and alert, but non-conversive. She moves her head, but does not move her arms or legs due to stimulation of any kind. She appears somewhat contracted in a partial position . HEENT: Normocephalic. Her sclerae are anicteric. Mucous membranes are moist. Oropharynx clear. Neck: Supple. Chest: Normal expansion. Cardiovascular: Regular rate and rhythm. Pulmonary: Clear to auscultation bilaterally. Abdomen: Soft, scaphoid. There is a well-healed upper midline scar. Extremities: No clubbing, cyanosis, or edema. Laboratory Data: White blood cell count 8.5, hemoglobin 9.8, hematocrit 27.0, platelet count is 144. Chemistry with sodium 145, potassium 3.5, chloride 110, carbon dioxide 28, BUN 7, creatinine 0.5, g lucose is 134. She had imaging performed, which included a chest x-ray, officially read as small to moderate left lower lung field pneumonia. Head CT that was performed on 06/28 as well as the chest x -ray was officially read as no hemorrhage, edema, or acute intracranial findings, large area of cysti c encephalomalacia, left frontal lobe resection matching prior imaging. There is a 2 cm mass in the region of the genu corpus callosum and in the medial floor a remnant of the left frontal lobe tissue. This maybe 2 adjacent masses or single, however, the etiology of the mass is unknown. No significa nt mass effect or edema related to mass, which is probably unrelated to the acute clinical presentati on. The patient has advanced atrophy and chronic ischemic change that progressed since 2014. 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 These may have developed as a sequelae of rad iation therapy. The imaging characteristics are not typical for malignancy, neither lesion is felt t o be related to an acute clinical presentation. No acute infarction. No changes present. The patie nt has a prominent atrophy and chronic ischemic changes in addition to the postsurgical and post ther apy changes involving the frontal lobes. Assessment And Plan: This is a 63-year-old woman with significant neurologic dysfunction and aspirat ion episodes. 1.Continue IV fluid hydration. 2.I have explained risks, benefits, and alternatives of PEG tube placement to the family and the pat ient including, but not limited to bleeding, infection, damage to surrounding organs, perforation of intestines, septic shock, worsening stroke, SD/myocardial infarction, and other long-term compl ications, need for wound care and possible inability to place PEG due to previous surgeries. The pat ient and her family/medical power of civil attorney agree to proceed as indicated. Thank you for this interesting consult. SERGIO Voice ID: [id number] Report ID: [id number]
[2018-07-04 09:21] LABS: Absolute Lymphocytes (CBC) 1.1 K/uL (0.7-4.9); Absolute Monocytes 0.6 K/uL (0.1-1.3); Basophils % 0.4 % (0-1.3); Eosinophils % 4.4 % (0-4.4); Hematocrit 30.3 % (36.0-45.0); Lymphocytes % 11.5 % (15.3-44.8); MPV 10.3 fL (7.6-11.3); Monocytes % 6.9 % (3.3-12.3); RBC Red Blood Cell Count 3.82 M/uL (3.86-4.86)
[2018-07-04 09:39] LABS: ALT/SGPT 28 U/L (12-78); AST/SGOT 23 U/L (15-37); Albumin 2.2 g/dL (3.4-5.0); Alkaline Phosphatase 94 U/L (45-117); BUN Blood Urea Nitrogen 5 mg/dL (7-18); Bicarbonate 31 mmol/L (21-32); Bilirubin Total 0.8 mg/dL (0.2-1.0); Glucose Level 109 mg/dL (74-106); Magnesium 1.8 mg/dL (1.8-2.4); Potassium 3.5 mmol/L (3.5-5.1); Protein, Total 6.7 g/dL (6.4-8.2); Sodium Level 146 mmol/L (136-145)
[2018-07-04] MEDS ORDERED: NA CHLORIDE 0.9% 1,000 ML ONE (10:06)
[2018-07-04] MEDS ORDERED: CEFAZOLIN 1GM (PREMIX IV) 1 GM/50 ML BAG ONE (10:06)
[2018-07-04] MEDS ORDERED: PROPOFOL 200 MG/20 ML VIAL IV ONE ×2 (10:15)
[2018-07-04] MEDS ORDERED: MIDAZOLAM HCL 2 MG/2 ML INJ ONE (10:16)
[2018-07-04 10:55] LABS: Anisocytosis SLIGHT; Blood Morphology Comment NOTED (NOT SEEN); Platelet Estimate ADEQ; Urine White Blood Cell Casts OK
[2018-07-04 10:56] LABS: Elliptocytes 1+; Poikilocytosis SLIGHT
--- NOTE | 2018-07-04 11:55 | ENDO RPT ---
[address], [address] EGD WITH PEG PROCEDURE REPORT EXAM DATE: 07/04/2018 PATIENT NAME: Clemencia Terry MR #: [id number] BIRTHDATE: 1955 ATTENDING: Zachery Guevara DR STATUS: inpatient - [facility] RE[facility] SOCIAL WORKER: Mariaa Rudolph RN, Reena Downs, and Shasta Cordova RN INDICATIONS: The patient is a 63 yr old Female here for an EGD with PEG due to dysphagia and malnutrition PROCEDURE PERFORMED: EGD with biopsy for H. pylori EGD-PEG MEDICATIONS: Per Anesthesia. TOPICAL ANESTHETIC: none CONSENT: The patient understands the risks and benefits of the procedure and understands that these risks include, but are not limited to: sedation, allergic reaction, infection, perforation and/or bleeding. Alternative means of evaluation and treatment include, among others: physical exam, x-rays, and/or surgical intervention. The patient elects to proceed with this endoscopic procedure. DESCRIPTION OF PROCEDURE: During intra-op preparation period all mechanical medical equipment was checked for proper function. Hand hygiene and appropriate measures for infection prevention was taken. After the risks, benefits and alternatives of the procedure were thoroughly explained, Informed consent was verified, confirmed and timeout was successfully executed by the treatment team. The patient was anesthetized with topical anesthesia and the Pentax EG-[id number] ([id number]) endoscope was introduced through the mouth and advanced to the first portion of the duodenum. The instrument was slowly withdrawn as the mucosa was fully examined. Moderate Atrophic gastritis was found in the total stomach. A biopsy for H. pylori was taken. The stomach was then inflated with air, and by a combination of transillumination and manual palpation, the site for the gastrostomy tube placement was selected and marked on the anterior abdominal wall. The skin of the anterior abdomen was surgically prepped and draped with sterile towels. Utilizing strict sterile technique, the selected site was then anesthetized with 1% xylocaine by injection into the skin and subcutaneous tissue. A 1 cm incision was made through the skin and subcutaneous tissue, and the needle/cannula assembly was then passed through the abdominal wall and through the anterior wall of the stomach, maintaining visualization with the endoscope. A snare device previously placed through the instrument channel was then opened and placed around the cannula, the needle was removed, and the insertion wire was passed through the cannula and into the stomach lumen. The snare was then loosened from the cannula, and repositioned to snare the insertion wire. The snare was then pulled up to the endoscope distal tip, and the scope was then withdrawn bringing with it the snare and insertion wire. The insertion wire was then released from the snare, and then loop-attached to the PEG PULL gastrostomy tube. Using the "pull technique", the G-tube was then pulled into place by traction on the insertion wire at the abdominal wall end. The G-tube insertion site was then cleansed once again, and the external bolster was placed over the tube to secure it to the abdominal wall. A sterile dressing was then applied, and the procedure terminated. Retroflexed views revealed no abnormalities. The gastroscope was then slowly withdrawn and removed. ADVERSE EVENT: There were no complications. IMPRESSIONS: Moderate Atrophic gastritis was found in the total stomach RECOMMENDATIONS: 1. acid suppression therapy 2. anti-reflux regimen 3. await biopsy results 4. avoid NSAIDS 5. begin feeding tomorrow 6. follow PEG suggestions 7. follow-up of helicobacter pylori status, treat if indicated REPEAT EXAM: Zachery Guevara DR eSigned: Zachery Guevara DR 07/04/2018 10:40 AM cc: CPT CODES: ICD9 CODES: PATIENT NAME: Clemencia Terry MR#: [id number]
[2018-07-04] MEDS: D5W 1,000 ML IV SCH ×2 (12:17→19:00)
[2018-07-04] MEDS: Levofloxacin500mg IV 500 MG/100 ML BAG IV SCH (12:18)
--- NOTE | 2018-07-04 17:41 | P.PN ---
Subjective Date of Service: 07/04/18 Primary Care Provider: none Chief Complaint: DYSPHAGIA Subjective: Other (Stable.) Physical Examination - Vital Signs Temperature: 97.4 F Blood Pressure: 139/81 Pulse: 96 Respirations: 18 Pulse Ox (%): 100 - Physical Exam General: Alert HEENT: Atraumatic Neck: Supple Respiratory: Clear to auscultation bilaterally, Normal air movement Cardiovascular: Normal pulses, Regular rate/rhythm - Studies Medications List Reviewed: Yes Assessment & Plan Discharge Plan: [facility] Plan to discharge in: Greater than 2 days Physician Review Additional Text: Impression: Hypernatremia, severe malnutrition with dysphagia History brain cancer-glioblastoma with prior 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 Will continue to monitor closely. Adjust IV fluids. Patient NPO for PEG tube placement. Await further recommendations from surgery. Will consult dietary. History brain cancer-glioblastoma with prior surgery: Stable at this time. Patient will return to the group home once stable and tolerating PEG tube feeds. Will get physical therapy to assess ambulation. Patient was walking prior to July of 2017. 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 Anemia likely of chronic disease: Will continue monitor closely. Time Spent Managing Pts Care (In Minutes): 55
[2018-07-04] MEDS: MORPHINE 2 MG/ML SYR IV PRN (22:25)
--- NOTE | 2018-07-05 08:36 | P.PN ---
Subjective Date of Service: 07/05/18 Primary Care Provider: none Chief Complaint: DYSPHAGIA Subjective: Improving (patient had clot @ PEG site last evening, no active bleeding today) Physical Examination - Vital Signs Temperature: 97.8 F Blood Pressure: 141/72 Pulse: 93 Respirations: 20 Pulse Ox (%): 96 - Physical Exam General: Alert, Demented Gastrointestinal: Other (soft, mild appropriate TTP, ND, PEG site is clean and dry today, no bleeding, no drainage.) - Studies Medications List Reviewed: Yes Assessment And Plan - Current Problems (Diagnosis) (1) Malnutrition Current Visit: Yes Status: Acute Plan: start PEG feeding monitor for refeeding syndrome may use PEG tube today patient has significant gastritis confirmed on EGD, protonix daily, follow up on biopsy Physician Review Additional Text: Impression: Hypernatremia, severe malnutrition with dysphagia History brain cancer-glioblastoma with prior 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 Will continue to monitor closely. Adjust IV fluids. Patient NPO for PEG tube placement. Await further recommendations from surgery. Will consult dietary. History brain cancer-glioblastoma with prior surgery: Stable at this time. Patient will return to the custodial once stable and tolerating PEG tube feeds. Will get physical therapy to assess ambulation. Patient was walking prior to July of 2017. 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 Anemia likely of chronic disease: Will continue monitor closely.
--- NOTE | 2018-07-05 08:54 | ENDO RPT ---
[address], [address] EGD WITH PEG PROCEDURE REPORT EXAM DATE: 07/04/2018 PATIENT NAME: Clemencia Terry MR #: [id number] BIRTHDATE: 1955 ATTENDING: Zachery Guevara DR STATUS: inpatient - [facility] SPECTROSCOPIST: Mariaa Rudolph RN, Reena Downs, and Shasta Cordova RN INDICATIONS: The patient is a 63 yr old Female here for an EGD with PEG due to dysphagia and malnutrition PROCEDURE PERFORMED: EGD with biopsy for H. pylori EGD-PEG MEDICATIONS: Per Anesthesia. TOPICAL ANESTHETIC: none CONSENT: The patient understands the risks and benefits of the procedure and understands that these risks include, but are not limited to: sedation, allergic reaction, infection, perforation and/or bleeding. Alternative means of evaluation and treatment include, among others: physical exam, x-rays, and/or surgical intervention. The patient elects to proceed with this endoscopic procedure. DESCRIPTION OF PROCEDURE: During intra-op preparation period all mechanical medical equipment was checked for proper function. Hand hygiene and appropriate measures for infection prevention was taken. After the risks, benefits and alternatives of the procedure were thoroughly explained, Informed consent was verified, confirmed and timeout was successfully executed by the treatment team. The patient was anesthetized with topical anesthesia and the Pentax EG-[id number] ([id number]) endoscope was introduced through the mouth and advanced to the first portion of the duodenum. The instrument was slowly withdrawn as the mucosa was fully examined. Moderate Atrophic gastritis was found in the total stomach. A biopsy for H. pylori was taken. The stomach was then inflated with air, and by a combination of transillumination and manual palpation, the site for the gastrostomy tube placement was selected and marked on the anterior abdominal wall. The skin of the anterior abdomen was surgically prepped and draped with sterile towels. Utilizing strict sterile technique, the selected site was then anesthetized with 1% xylocaine by injection into the skin and subcutaneous tissue. A 1 cm incision was made through the skin and subcutaneous tissue, and the needle/cannula assembly was then passed through the abdominal wall and through the anterior wall of the stomach, maintaining visualization with the endoscope. A snare device previously placed through the instrument channel was then opened and placed around the cannula, the needle was removed, and the insertion wire was passed through the cannula and into the stomach lumen. The snare was then loosened from the cannula, and repositioned to snare the insertion wire. The snare was then pulled up to the endoscope distal tip, and the scope was then withdrawn bringing with it the snare and insertion wire. The insertion wire was then released from the snare, and then loop-attached to the PEG PULL gastrostomy tube. Using the "pull technique", the G-tube was then pulled into place by traction on the insertion wire at the abdominal wall end. The G-tube insertion site was then cleansed once again, and the external bolster was placed over the tube to secure it to the abdominal wall. A sterile dressing was then applied, and the procedure terminated. Retroflexed views revealed no abnormalities. The gastroscope was then slowly withdrawn and removed. ADVERSE EVENT: There were no complications. IMPRESSIONS: Moderate Atrophic gastritis was found in the total stomach RECOMMENDATIONS: 1. acid suppression therapy 2. anti-reflux regimen 3. await biopsy results 4. avoid NSAIDS 5. begin feeding tomorrow 6. follow PEG suggestions 7. follow-up of helicobacter pylori status, treat if indicated REPEAT EXAM: Zachery Guevara DR eSigned: Zachery Guevara DR 07/05/2018 8:42 AM Revised: 07/05/2018 8:42 AM cc: CPT CODES: ICD9 CODES: PATIENT NAME: Clemencia Terry MR#: [id number]
[2018-07-05] MEDS: MORPHINE 2 MG/ML SYR IV PRN ×2 (09:57→21:40)
[2018-07-05] MEDS: FLUCONAZOLE 100mg IVPB 100 MG/50 ML BAG IV SCH (09:58)
[2018-07-05] MEDS: D5W 1,000 ML IV SCH ×2 (09:59→15:00)
[2018-07-05] MEDS: Levofloxacin500mg IV 500 MG/100 ML BAG IV SCH (12:24)
[2018-07-05] MEDS: JEVITY 1.2 CAL LIQUID 1,000 ML BOT RTH SCH (13:08)
--- NOTE | 2018-07-05 15:20 | P.PN ---
Subjective Date of Service: 07/05/18 Primary Care Provider: none Chief Complaint: DYSPHAGIA Subjective: Improving Physical Examination - Vital Signs Temperature: 97.8 F Blood Pressure: 149/67 Pulse: 86 Respirations: 18 Pulse Ox (%): 100 - Physical Exam General: Alert HEENT: Atraumatic Neck: Supple Respiratory: Clear to auscultation bilaterally, Normal air movement Cardiovascular: Normal pulses, Regular rate/rhythm Gastrointestinal: Other (PEG tube in place.) - Studies Medications List Reviewed: Yes Assessment & Plan Discharge Plan: Home Plan to discharge in: 48 Hours Physician Review Additional Text: Impression: Hypernatremia, severe malnutrition with dysphagia History brain cancer-glioblastoma with prior surgery 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 Patient will start with PEG tube feeds. Will have dietary transition to bolus feeds as the patient will require this at [facility]. History brain cancer-glioblastoma with prior surgery: Stable at this time. Patient will return to the [facility] once stable and tolerating PEG tube feeds. Will continue to have physical therapy to assess ambulation. Patient was walking prior to July of 2017. 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 Anemia likely of chronic disease: Will continue monitor closely. Gastritis: Surgery has added PPI. Time Spent Managing Pts Care (In Minutes): 55
[2018-07-05] MEDS: NACHLORIDE 0.45% 1,000 ML IV SCH (16:56)
[2018-07-06] MEDS ORDERED: KETOROLAC 30 MG/ML INJ IV ONE (02:19)
[2018-07-06 07:39] LABS: ALT/SGPT 19 U/L (12-78); AST/SGOT 27 U/L (15-37); Albumin 1.9 g/dL (3.4-5.0); Alkaline Phosphatase 84 U/L (45-117); BUN Blood Urea Nitrogen 5 mg/dL (7-18); Bicarbonate 30 mmol/L (21-32); Bilirubin Total 0.5 mg/dL (0.2-1.0); Glucose Level 119 mg/dL (74-106); Magnesium 1.7 mg/dL (1.8-2.4); Potassium 4.2 mmol/L (3.5-5.1); Sodium Level 143 mmol/L (136-145)
[2018-07-06 08:06] LABS: Absolute Lymphocytes (CBC) 1.3 K/uL (0.7-4.9); Absolute Monocytes 0.8 K/uL (0.1-1.3); Absolute Neutrophil 8.2 K/uL (1.8-8.0); Basophils % 0.6 % (0-1.3); Eosinophils % 4.5 % (0-4.4); Hematocrit 23.4 % (36.0-45.0); Lymphocytes % 11.6 % (15.3-44.8); MPV 10.3 fL (7.6-11.3); Monocytes % 7.1 % (3.3-12.3); RBC Red Blood Cell Count 2.95 M/uL (3.86-4.86)
[2018-07-06 08:49] LABS: Platelet Estimate ADEQ; Urine White Blood Cell Casts OK
[2018-07-06 08:51] LABS: Anisocytosis 2+; Blood Morphology Comment NOTED (NOT SEEN); Burr Cells 1+; Elliptocytes 1+; Poikilocytosis 2+; Polychromasia 1+
[2018-07-06 08:55] LABS: Hematocrit 25.9 % (36.0-45.0)
[2018-07-06] MEDS: NACHLORIDE 0.45% 1,000 ML IV SCH ×2 (09:07→11:22)
[2018-07-06] MEDS: FLUCONAZOLE 100mg IVPB 100 MG/50 ML BAG IV SCH (09:09)
[2018-07-06] MEDS: Pantoprazole (granules) 40 MG/BLIST PACKET FT SCH (10:00)
--- NOTE | 2018-07-06 11:31 | P.PN ---
Subjective Date of Service: 07/06/18 Primary Care Provider: none Chief Complaint: DYSPHAGIA Subjective: Doing well (Overall stable. Sister at bedside. Sister reports patient doing well. Patient did work with physical therapy yesterday) Physical Examination - Vital Signs Temperature: 97.9 F Blood Pressure: 165/77 Pulse: 122 Respirations: 18 Pulse Ox (%): 99 - Physical Exam General: Alert HEENT: Atraumatic Neck: Supple Respiratory: Clear to auscultation bilaterally, Normal air movement Cardiovascular: Normal pulses, Regular rate/rhythm Gastrointestinal: Normal bowel sounds, Other (PEG tube in place) Neurological: Other (Muscle wasting to the upper and lower extremities.) - Studies Medications List Reviewed: Yes Assessment & Plan Discharge Plan: Home Plan to discharge in: 48 Hours Physician Review Additional Text: Impression: Hypernatremia, severe malnutrition with dysphagia History brain cancer-glioblastoma with prior surgery 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 Will continue with PEG tube feeds. Will check with dietary to see if the patient will require bolus feeds at discharge or continue with continuous feeds at the [facility]. Patient still not to goal. Will restart DVT prophylaxis History brain cancer-glioblastoma with prior surgery: Stable at this time. Patient will return to the [facility] once stable and tolerating PEG tube feeds. Will continue to have physical therapy to assess ambulation. Patient was walking prior to July of 2017. 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 Anemia likely of chronic disease: Will continue monitor closely. Recheck H&H stable. Gastritis: Surgery has added PPI. Hypertension: Blood pressures reviewed. Blood pressure slightly elevated. Will start low-dose metoprolol. Time Spent Managing Pts Care (In Minutes): 55
[2018-07-06] MEDS ORDERED: MAGNESIUM SULFATE 1 gm IVPB 1 GM/100 ML BAG IV ONE (16:00)
[2018-07-06] MEDS: ENOXAPARIN 30 MG/0.3 ML SQ SCH (16:31)
[2018-07-06] MEDS: METOPROLOL TAR 25 MG TAB FT SCH (17:21)
[2018-07-07] MEDS: MORPHINE 2 MG/ML SYR IV PRN ×2 (00:29→13:57)
[2018-07-07 05:48] LABS: Absolute Lymphocytes (CBC) 1.1 K/uL (0.7-4.9); Absolute Monocytes 0.6 K/uL (0.1-1.3); Basophils % 0.4 % (0-1.3); Eosinophils % 3.3 % (0-4.4); Hematocrit 22.7 % (36.0-45.0); Lymphocytes % 13.7 % (15.3-44.8); MPV 9.4 fL (7.6-11.3); Monocytes % 7.3 % (3.3-12.3); RBC Red Blood Cell Count 2.87 M/uL (3.86-4.86)
[2018-07-07 06:10] LABS: ALT/SGPT 19 U/L (12-78); AST/SGOT 13 U/L (15-37); Albumin 2.1 g/dL (3.4-5.0); Alkaline Phosphatase 92 U/L (45-117); BUN Blood Urea Nitrogen 7 mg/dL (7-18); Bicarbonate 33 mmol/L (21-32); Bilirubin Total 0.4 mg/dL (0.2-1.0); Glucose Level 125 mg/dL (74-106); Magnesium 2.1 mg/dL (1.8-2.4); Potassium 3.3 mmol/L (3.5-5.1); Protein, Total 6.2 g/dL (6.4-8.2); Sodium Level 148 mmol/L (136-145)
[2018-07-07] MEDS ORDERED: POTASSIUM CL SA 10 MEQ TAB PO ONE (06:55)
[2018-07-07] MEDS: METOPROLOL TAR 25 MG TAB FT SCH ×2 (07:51→17:02)
[2018-07-07] MEDS: Pantoprazole (granules) 40 MG/BLIST PACKET FT SCH (07:51)
[2018-07-07] MEDS: NACHLORIDE 0.45% 1,000 ML IV SCH (08:00)
--- NOTE | 2018-07-07 09:10 | P.PN ---
Subjective Date of Service: 07/07/18 Primary Care Provider: none Chief Complaint: DYSPHAGIA Subjective: Improving (no bleeding issues, tube feeding working well) Physical Examination - Vital Signs Temperature: 98.4 F Blood Pressure: 125/60 Pulse: 93 Respirations: 16 Pulse Ox (%): 99 - Physical Exam General: Alert, Demented Gastrointestinal: Other (soft, mild appropriate TTP, PEG tube site clean and dry , no bleeding, minimal dc on gauze) - Studies Medications List Reviewed: Yes Assessment And Plan - Current Problems (Diagnosis) (1) Malnutrition Current Visit: Yes Status: Acute Plan: start PEG feeding monitor for refeeding syndrome may use PEG tube today patient has significant gastritis confirmed on EGD, protonix daily, follow up on biopsy Physician Review Additional Text: Impression: Hypernatremia, severe malnutrition with dysphagia History brain cancer-glioblastoma with prior surgery 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 Will continue with PEG tube feeds. Will check with dietary to see if the patient will require bolus feeds at discharge or continue with continuous feeds at the assisted. Patient still not to goal. Will restart DVT prophylaxis History brain cancer-glioblastoma with prior surgery: Stable at this time. Patient will return to the assisted once stable and tolerating PEG tube feeds. Will continue to have physical therapy to assess ambulation. Patient was walking prior to July of 2017. 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 Anemia likely of chronic disease: Will continue monitor closely. Recheck H&H stable. Gastritis: Surgery has added PPI. Hypertension: Blood pressures reviewed. Blood pressure slightly elevated. Will start low-dose metoprolol.
[2018-07-07] MEDS: FLUCONAZOLE 100mg IVPB 100 MG/50 ML BAG IV SCH (10:10)
[2018-07-07 13:50] LABS: Hematocrit 21.5 % (36.0-45.0)
--- NOTE | 2018-07-07 13:50 | P.PN ---
Subjective Date of Service: 07/07/18 Primary Care Provider: none Chief Complaint: DYSPHAGIA Subjective: Doing well Physical Examination - Vital Signs Temperature: 98.7 F Blood Pressure: 108/51 Pulse: 88 Respirations: 16 Pulse Ox (%): 99 - Physical Exam General: Alert HEENT: Atraumatic Neck: Supple Respiratory: Clear to auscultation bilaterally, Normal air movement Cardiovascular: Normal pulses, Regular rate/rhythm Gastrointestinal: Other (PEG tube in place) - Studies Medications List Reviewed: Yes Assessment & Plan Discharge Plan: Shelter Plan to discharge in: 24 Hours Physician Review Additional Text: Impression: Hypernatremia, severe malnutrition with dysphagia History brain cancer-glioblastoma with prior surgery 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 Will continue with PEG tube feeds. Patient with reaching goal target for feeds. Will need to check with assisted to see if she will require continuous feeds or bolus feeds. If with bolus feeds will have dietary transition to bolus feeds. Will discontinue IV fluids. Anticipate possible discharge tomorrow. History brain cancer-glioblastoma with prior surgery: Stable at this time. Patient will return to the correction once stable and tolerating PEG tube feeds. Will continue to have physical therapy to assess ambulation. Patient was walking prior to July of 2017. 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 Anemia likely of chronic disease: Will continue monitor closely. H&H slightly low. Will recheck. If less than 7.5 patient may require transfusion. Gastritis: Continue with PPI. Hypertension: Blood pressures reviewed. Blood pressure slightly elevated. Doing well with low-dose metoprolol. Time Spent Managing Pts Care (In Minutes): 55
[2018-07-07] MEDS ORDERED: KCL 20 MEQ/100 mL IVPB 20 MEQ/100 ML BAG IV SCH (16:00)
[2018-07-07] MEDS ORDERED: POTASSIUM 25 MEQ EFFERV TAB FT SCH (16:00)
[2018-07-07] MEDS ORDERED: NA CHLORIDE 0.9% 250 ML ONE (16:14)
[2018-07-07] MEDS: ENOXAPARIN 30 MG/0.3 ML SQ SCH (16:30)
[2018-07-07] MEDS ORDERED: POTASSIUM 25 MEQ EFFERV TAB FT ONE (17:00)
[2018-07-07] MEDS ORDERED: FUROSEMIDE 20 MG/ 2ML VIAL IV ONE (19:50)
[2018-07-07] MEDS: JEVITY 1.2 CAL LIQUID 1,000 ML BOT RTH SCH (22:26)
[2018-07-07 23:11] LABS: Hematocrit 31.4 % (36.0-45.0)
[2018-07-08] MEDS: METOPROLOL TAR 25 MG TAB FT SCH ×2 (06:08→17:25)
[2018-07-08] MEDS: Pantoprazole (granules) 40 MG/BLIST PACKET FT SCH (06:09)
[2018-07-08 06:47] LABS: Absolute Lymphocytes (CBC) 1.4 K/uL (0.7-4.9); Absolute Monocytes 0.8 K/uL (0.1-1.3); Absolute Neutrophil 6.7 K/uL (1.8-8.0); Basophils % 0.6 % (0-1.3); Eosinophils % 4.6 % (0-4.4); Hematocrit 27.6 % (36.0-45.0); Lymphocytes % 15.1 % (15.3-44.8); Monocytes % 8.1 % (3.3-12.3); RBC Red Blood Cell Count 3.43 M/uL (3.86-4.86)
[2018-07-08 07:11] LABS: ALT/SGPT 19 U/L (12-78); AST/SGOT 18 U/L (15-37); Albumin 2.2 g/dL (3.4-5.0); Alkaline Phosphatase 76 U/L (45-117); BUN Blood Urea Nitrogen 11 mg/dL (7-18); Bicarbonate 34 mmol/L (21-32); Bilirubin Total 0.7 mg/dL (0.2-1.0); Glucose Level 122 mg/dL (74-106); Magnesium 1.7 mg/dL (1.8-2.4); Potassium 3.7 mmol/L (3.5-5.1); Protein, Total 6.4 g/dL (6.4-8.2); Sodium Level 144 mmol/L (136-145)
[2018-07-08] MEDS ORDERED: MAGNESIUM SULFATE 1 gm IVPB 1 GM/100 ML BAG IV ONE (07:37)
[2018-07-08] MEDS ORDERED: POTASSIUM 25 MEQ EFFERV TAB PO ONE (09:00)
--- NOTE | 2018-07-08 10:08 | P.DS ---
Admission Date: 06/28/18 Discharge Date: 07/08/18 Primary Care Provider: [place] physician-Dr. Matos Disposition: [facility] TO [facility] Discharge Condition: GOOD Reason for Admission: DYSPHAGIA Consultations: Surgery-Dr. Guevara Procedures: MRI: COMPARISON: CT head June 28, 2018, MRI brain April 2014 TECHNIQUE: Sagittal T1-weighted images were obtained along with axial PD, heavily T2-weighted and T2-FLAIR images. Axial DWI and ADC mapping sequences were also obtained along with coronal heavily T2-weighted images. FINDINGS: Diffusion-weighted imaging shows no acute infarction change. Again noted is the large postsurgical cavity from resection of most of the left frontal lobe. The large cystic postoperative cavity communicates with the frontal horn left lateral ventricle. Patient has baseline significant atrophy and chronic ischemic change. Extensive baseline white matter signal abnormality in both the right frontal lobe and remnant left frontal lobe. No edema or shift of midline structures. Signal voids are seen as a normal finding in the major intracranial vessels. In the medial left-side anterior cranial fossa, within the remnant left frontal lobe, there is a 2.0 x 1.4 centimeter lobulated mass. Along the anterior midline , probably involving or arising from the genu of the corpus callosum there is a 20 x 18 lobulated mass. These are the correlates to the CT finding. The masses are in close proximity but are not a definitive single lesion. Imaging characteristics are identical. There is a hypointense peripheral rim on T2/IR sequences. Both masses are centrally hyperintense on T2 imaging. T1 imaging is heterogeneous with peripheral hyperintense and central hypointense signal. Mastoid air cells and paranasal sinuses are clear. No acute globe or orbital content abnormality. IMPRESSION: Within the remnant left frontal lobe and in the midline at the genu of the corpus callosum, two lobulated masses are present as correlates to the CT findings. 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 These may have developed as the sequela of radiation therapy. The imaging characteristics are not typical for malignancy. Neither lesion is felt to be related to the acute clinical presentation. No acute infarction changes are present. Patient has prominent atrophy and chronic ischemic changes in addition to the postsurgical and post therapy changes involving the frontal lobes. Endoscopy: PEG tube placement, Gastritis noted. 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 Patient was admitted for hyponatremia and dysphagia. Hospital Course: Patient presented with hypernatremia, severe malnutrition and dysphagia. Patient from a long term facility. Patient had evaluation done prior to admission for dysphagia. Patient was admitted for further treatment. Patient seen and evaluated by surgery. Case discussed with family concerning the possibility of PEG tube placement. Family agreed for the patient to have PEG tube. Peg tube was placed without complication. Patient was started on feeds. Patient was able to reach her goal for nutrition. At discharge she will continue with PEG tube feeds-Jevity 1.5--- 4 times a day. She will continue with bolus feeds. Patient will continue with physical therapy at the long term. Further adjustment can be done by long term physician. Recommend to recheck lab-CBC, BMP in 1-2 weeks to monitor progress. Aspiration precaution will need to be continued. Patient will need to follow up with surgery within 1 -2 weeks to follow up this hospitalization and PEG tube placement. Patient may continue with speech therapy to continue to help decrease risk of aspiration and to hopefully improve swallowing. Upon EGD evaluation for PEG tube. Patient found to have gastritis. Patient will continue with Protonix 40 mg per PEG tube daily. Patient with underlying history of brain cancer-glioblastoma with prior surgery. Patient now with dementia related to radiation therapy. Patient currently stable this time. She will continue with physical therapy. Family reports patient was walking prior to July of 2017. Hopefully with nutrition and physical therapy her condition will improve. Patient will continue with aspirin 81 mg daily. Patient also takes Ritalin 5 mg daily, Remeron 15 mg at night. These medications can be adjusted by long term physician. Patient had elevated blood pressures during the course of her stay. Patient found to have hypertension. Patient was started on low-dose metoprolol and doing well with this medication. At discharge she will continue with metoprolol 12.5 mg twice daily. Recommend to maintain blood pressure less than 150/80. Further adjustment can be done by guitar technician. Patient with anemia of chronic disease. Hemoglobin was low during her stay requiring transfusion. Hemoglobin stable at discharge. Recommend to recheck iron, B12 levels at the long term along with CBC in 1 week to monitor her progress. Patient may require supplementation in the near future. This can be further addressed by the long term physician. Vital Signs/Physical Exam: Temp Pulse Resp BP Pulse Ox 99.1 F 101 H 12 121/58 L 97 07/08/18 04:00 07/08/18 06:08 07/08/18 04:00 07/08/18 06:08 07/08/18 04:00 General: Alert, Demented HEENT: Atraumatic Neck: Supple Respiratory: Clear to auscultation bilaterally, Normal air movement Cardiovascular: Normal pulses, Regular rate/rhythm Gastrointestinal: Other (PEG tube in place) Neurological: Other (Muscle wasting to the upper and lower extremities.), Dementia Laboratory Data at Discharge: WBC 9.4 K/uL (4.3-10.9) D 07/08/18 06:38 Hgb 9.1 g/dL (12.0-15.0) L 07/08/18 06:38 Hct 27.6 % (36.0-45.0) L 07/08/18 06:38 Plt Count 249 K/uL (152-406) 07/08/18 06:38 PT 40.4 SECONDS (9.5-12.5) H 06/28/18 14:00 INR 3.38 06/28/18 14:00 Sodium 144 mmol/L (136-145) 07/08/18 06:38 Potassium 3.7 mmol/L (3.5-5.1) 07/08/18 06:38 BUN 11 mg/dL (7-18) 07/08/18 06:38 Creatinine 0.43 mg/dL (0.55-1.3) L 07/08/18 06:38 Glucose 122 mg/dL (74-106) H 07/08/18 06:38 Phosphorus 2.3 mg/dL (2.5-4.9) L 07/02/18 05:20 Magnesium 1.7 mg/dL (1.8-2.4) L 07/08/18 06:38 Total Bilirubin 0.7 mg/dL (0.2-1.0) 07/08/18 06:38 AST 18 U/L (15-37) 07/08/18 06:38 ALT 19 U/L (12-78) 07/08/18 06:38 Alkaline Phosphatase 76 U/L (45-117) 07/08/18 06:38 Lipase 502 U/L (73-393) H 06/28/18 14:00 Home Medications: Atorvastatin Calcium [Lipitor*] 40 mg PO BEDTIME 12/02/13 Acetaminophen [Tylenol] 650 mg PO Q4HP PRN 06/29/18 Aspirin Chewable [Aspirin Chewable*] 81 mg PO DAILY 06/29/18 Hydrocortisone Cream [Hydrocortisone 1% Cream*] 1 appl TOP Q4HP PRN 06/29/18 Methylphenidate HCl [Ritalin] 5 mg PO DAILY 06/29/18 Mirtazapine [Remeron*] 15 mg PO BEDTIME 06/29/18 traMADol HCL [Ultram*] 50 mg PO Q8HP PRN 06/29/18 Metoprolol Tartrate [Lopressor*] 12.5 mg FT BID 6AM 6PM #60 tab 07/08/18 Pantoprazole Granules [Protonix Granules*] 40 mg FT DAILYAC #30 packet 07/08/18 New Medications: Metoprolol Tartrate [Lopressor*] 12.5 mg FT BID 6AM 6PM #60 tab Pantoprazole Granules [Protonix Granules*] 40 mg FT DAILYAC #30 packet Patient Discharge Instructions: 1. Patient will return to long term. 2. Patient presented with hypernatremia, severe malnutrition and dysphagia. Patient from a long term facility. Patient had evaluation done prior to admission for dysphagia. Patient was admitted for further treatment. Patient seen and evaluated by surgery. Case discussed with family concerning the possibility of PEG tube placement. Family agreed for the patient to have PEG tube. Peg tube was placed without complication. Patient was started on feeds. Patient was able to reach her goal for nutrition. At discharge she will continue with PEG tube feeds-Jevity 1.5--- 4 times a day. She will continue with bolus feeds. Patient will continue with physical therapy at the long term. Further adjustment can be done by long term physician. Recommend to recheck lab-CBC, BMP in 1-2 weeks to monitor progress. Aspiration precaution will need to be continued. Patient will need to follow up with surgery within 1 -2 weeks to follow up this hospitalization and PEG tube placement. Patient may continue with speech therapy to continue to help decrease risk of aspiration and to hopefully improve swallowing. 3. Upon EGD evaluation for PEG tube. Patient found to have gastritis. Patient will continue with Protonix 40 mg per PEG tube daily. 4. Patient with underlying history of brain cancer- glioblastoma with prior surgery. Patient now with dementia related to radiation therapy. Patient currently stable this time. She will continue with physical therapy. Family reports patient was walking prior to July of 2017. Hopefully with nutrition and physical therapy her condition will improve. Patient will continue with aspirin 81 mg daily. Patient also takes Ritalin 5 mg daily, Remeron 15 mg at night. These medications can be adjusted by long term physician. 5. Patient had elevated blood pressures during the course of her stay. Patient found to have hypertension. Patient was started on low-dose metoprolol and doing well with this medication. At discharge she will continue with metoprolol 12.5 mg twice daily. Recommend to maintain blood pressure less than 150/80. Further adjustment can be done by guitar technician. 6. Patient with anemia of chronic disease. Hemoglobin was low during her stay requiring transfusion. Hemoglobin stable at discharge. Recommend to recheck iron, B12 levels at the long term along with CBC in 1 week to monitor her progress. Patient may require supplementation in the near future. This can be further addressed by the long term physician. Diet: PEG tube feeds Activity: Fall precautions Time spent managing pt's care (in minutes): 55
[2018-07-08] MEDS: FLUCONAZOLE 100mg IVPB 100 MG/50 ML BAG IV SCH (10:10)
[2018-07-08] MEDS: JEVITY 1.5 CAL LIQUID 1,000 ML BOT FT SCH ×4 (13:00→21:23)
[2018-07-08] MEDS ORDERED: ACETAMINOPHEN 500 MG TAB FT ONE ×2 (16:25→21:18)
[2018-07-08] MEDS: ENOXAPARIN 30 MG/0.3 ML SQ SCH (17:24)
--- NOTE | 2018-07-08 17:29 | RAD REPORT ---
EXAM DESCRIPTION: RAD - Chest Single View - 07/08/2018 5:16 pm CLINICAL HISTORY: Pneumonia COMPARISON: June 28 TECHNIQUE: AP portable chest image was obtained 1713 hours . FINDINGS: Left lung base pneumonia findings have improved slightly. There is significant infiltrate remaining from the June 28 imaging. No progressive lung parenchymal process. No failure or volume overload. Heart and vasculature are normal. No measurable pleural effusion and no pneumothorax. No ac [place] bony abnormality seen. No acute aortic findings suspected. IMPRESSION: Partial resolution of lung base pneumonia. Significant infiltrate remains.
[2018-07-08] MEDS ORDERED: Levofloxacin500mg IV 500 MG/100 ML BAG IV SCH (21:00)
[2018-07-08] MEDS ORDERED: ACETAMINOPHEN 500 MG TAB PO PRN (21:19)
[2018-07-09] MEDS: METOPROLOL TAR 25 MG TAB FT SCH ×2 (05:49→17:34)
[2018-07-09] MEDS: Pantoprazole (granules) 40 MG/BLIST PACKET FT SCH (05:50)
[2018-07-09 06:48] LABS: Urine Appearance CLEAR; Urine Bilirubin NEGATIVE (NEG); Urine Blood NEGATIVE (NEG); Urine Color YELLOW; Urine Glucose NEGATIVE (NEG); Urine Protein NEGATIVE (NEG); Urine Specific Gravity <=1.005 (1.005-1.030)
[2018-07-09 06:51] LABS: BUN Blood Urea Nitrogen 10 mg/dL (7-18); Bicarbonate 31 mmol/L (21-32); Glucose Level 76 mg/dL (74-106); Potassium 4.2 mmol/L (3.5-5.1); Sodium Level 143 mmol/L (136-145)
[2018-07-09 06:55] LABS: Absolute Lymphocytes (CBC) 1.5 K/uL (0.7-4.9); Absolute Monocytes 0.8 K/uL (0.1-1.3); Absolute Neutrophil 6.6 K/uL (1.8-8.0); Basophils % 0.6 % (0-1.3); Eosinophils % 3.9 % (0-4.4); Hematocrit 28.4 % (36.0-45.0); Lymphocytes % 16.4 % (15.3-44.8); MPV 9.4 fL (7.6-11.3); RBC Red Blood Cell Count 3.53 M/uL (3.86-4.86)
[2018-07-09 07:04] LABS: Urine Microscopic Reflex ORDER UMIC
[2018-07-09 07:14] LABS: Urine Bacteria <20 /HPF (<20); Urine RBC <5 /HPF (NONE SEEN)
[2018-07-09 07:15] LABS: Urine Culture Reflex Order REFLEXED; Urine Mucus 2+ /HPF (NONE SEEN)
[2018-07-09] MEDS: JEVITY 1.5 CAL LIQUID 1,000 ML BOT FT SCH ×3 (09:00→17:00)
[2018-07-09] MEDS: FLUCONAZOLE 100 MG TAB FT SCH (10:37)
--- NOTE | 2018-07-09 10:50 | RAD REPORT ---
EXAM DESCRIPTION: [place] Single View07/09/2018 8:54 am CLINICAL HISTORY: Chest pain COMPARISON: July 08 FINDINGS: No change in the left basilar opacity. Right lung appears clear. The heart is normal size IMPRESSION: No change in a left basilar pneumonia
[2018-07-09] MEDS: ENOXAPARIN 30 MG/0.3 ML SQ SCH (17:35)
[2018-07-09] MEDS ORDERED: levoFLOXacin 500 MG TAB FT SCH (21:00)
[2018-07-10] MEDS: JEVITY 1.5 CAL LIQUID 1,000 ML BOT FT SCH ×4 (00:34→17:00)
[2018-07-10] MEDS: METOPROLOL TAR 25 MG TAB FT SCH (06:00)
[2018-07-10 06:14] LABS: Absolute Lymphocytes (CBC) 1.7 K/uL (0.7-4.9); Absolute Monocytes 0.7 K/uL (0.1-1.3); Absolute Neutrophil 4.8 K/uL (1.8-8.0); Basophils % 0.4 % (0-1.3); Eosinophils % 5.1 % (0-4.4); Hematocrit 28.7 % (36.0-45.0); MPV 9.1 fL (7.6-11.3); Monocytes % 9.1 % (3.3-12.3); RBC Red Blood Cell Count 3.46 M/uL (3.86-4.86)
[2018-07-10] MEDS: Pantoprazole (granules) 40 MG/BLIST PACKET FT SCH (06:14)
[2018-07-10 06:48] LABS: BUN Blood Urea Nitrogen 10 mg/dL (7-18); Bicarbonate 32 mmol/L (21-32); Glucose Level 100 mg/dL (74-106); Magnesium 2.2 mg/dL (1.8-2.4); Potassium 4.1 mmol/L (3.5-5.1); Sodium Level 146 mmol/L (136-145)
[2018-07-10] MEDS: FLUCONAZOLE 100 MG TAB FT SCH (08:58)
--- NOTE | 2018-07-10 10:24 | RAD REPORT ---
EXAM DESCRIPTION: RAD - Abdomen 1 View (KUB) - 07/10/2018 10:03 am CLINICAL HISTORY: Abdominal pain, constipation COMPARISON: None. FINDINGS: Bowel gas pattern is non-specific. Moderately large stool volume is present filling but n ot dilating the colon. Remnant contrast or dense medication is present in the left side colon. No gume picious calcifications. PEG tube is in place. No significant bony findings IMPRESSION: Moderate stool volume filling but not dilating the entire colon. No obstruction or free air.
[2018-07-10 15:22] VITALS: O2SAT 96
[2018-07-10 16:35] VITALS: BP 120/56; TEMP 98.8
== END 2018-07-10 19:25 | DRG 391 ==
LOC: ER 12:25 → ERHOLD 17:33 → 4TH 20:00
PROVIDERS: ADMIT Family Medicine; ATTEND Family Medicine
PROC: 0DB68ZX Excision of Stomach, Via Natural or Artificial Opening Endoscopic, Diagnostic (ICD-10-PCS; principal; 2018-07-04 09:45)
PROC: 0DH63UZ Insertion of Feeding Device into Stomach, Percutaneous Approach (ICD-10-PCS; 2018-07-04 09:45)
PROC: 3E0G76Z Introduction of Nutritional Substance into Upper GI, Via Natural or Artificial Opening (ICD-10-PCS; 2018-07-05)
PROC: 30233N1 Transfusion of Nonautologous Red Blood Cells into Peripheral Vein, Percutaneous Approach (ICD-10-PCS; 2018-07-07)
DX: R13.19 Other dysphagia (principal); E43 Unspecified severe protein-calorie malnutrition; J18.9 Pneumonia, unspecified organism; E87.0 Hyperosmolality and hypernatremia; B37.0 Candidal stomatitis; I67.89 Other cerebrovascular disease; M62.82 Rhabdomyolysis; N39.0 Urinary tract infection, site not specified; Z68.1 Body mass index [BMI] 19.9 or less, adult; C71.1 Malignant neoplasm of frontal lobe; E87.1 Hypo-osmolality and hyponatremia; D63.8 Anemia in other chronic diseases classified elsewhere; D64.9 Anemia, unspecified; I10 Essential (primary) hypertension; Z86.73 Personal history of transient ischemic attack (TIA), and cerebral infarction without residual deficits; F32.9 Major depressive disorder, single episode, unspecified; E87.8 Other disorders of electrolyte and fluid balance, not elsewhere classified; E86.0 Dehydration; K29.40 Chronic atrophic gastritis without bleeding; W88.1XXA Exposure to radioactive isotopes, initial encounter; Y93.89 Activity, other specified; Y92.238 Other place in hospital as the place of occurrence of the external cause; Z91.81 History of falling
CPT/HCPCS: 36415; 36430; 51702; 70450; 70551; 71045; 74018; 80048; 80053; 80076; 80307; 81003; 81015; 82550; 82962; 83690; 83735; 84100; 84132; 84145; 84484; 85014; 85018; 85025; 85610; 86850; 86900; 86901; 87040; 87086; 87088; 88305; 88312; 93005; 96361; 96365; 96375; 97110; 97162; 97530; 99285; J0456; J0690; J0696; J1450; J1650; J1940; J2250; J2270; J2704; J3475; J7030; P9016

== ENCOUNTER 2021-06-02 12:17 | Inpatient (IN) | payer OTHER ==
[2021-06-02 13:20] LABS: Urine Blood Negative (Negative); Urine Glucose Negative (Negative); Urine Protein 2+ (Negative); Urine Specific Gravity >=1.030 (1.005-1.030)
--- NOTE | 2021-06-02 13:36 | RAD REPORT ---
EXAM DESCRIPTION: CT - Head Brain Wo Cont - 06/02/2021 1:25 pm CLINICAL HISTORY: SEIZURE Headache, drowsiness, seizure COMPARISON: Head Brain Wo Cont dated 06/28/2018; CT-STROKE BRAIN W/O CONTRAST dated 08/15/2014; Brain Wo Cont dated 06/28/[address]: [address] scans are performed using dose optimization technique as appropriate and may inclu de automated exposure control or mA/KV adjustment according to patient size. FINDINGS: [place] mildly hyperdense mass along the anterior falx measures 2.9 x 2.0 cm, increased in size since 2019 study which time it measured 2.0 x 2.0 cm.Previous MR imaging this lesion demonstrate d features of a cavernoma. Additional similar lesions are suspected in the frontal lobes as well. Postsurgical changes of left frontal lobectomy are present. Moderate white matter hypodensity is pres ent in the periventricular and deep white matter. No acute bleed is present. The paranasal sinuses and mastoids are clear. Postsurgical changes are present left-sided calvarium c raniotomy changes evident. IMPRESSION: Size increase in the anterior falx extra-axial mass since 2019 as detailed. Additional s imilar lesions are noted as well in the frontal lobes. Prior MR imaging from 2019 demonstrated featur es of cavernoma for these lesions. No acute hemorrhage is evident.
[2021-06-02 14:04] LABS: Protime INR 0.99
[2021-06-02 14:06] LABS: Hematocrit 36.7 % (36.0-45.0); Lymphocytes % 10.5 % (15.3-44.8); MPV 8.7 fL (7.6-11.3); RBC Red Blood Cell Count 4.72 M/uL (3.86-4.86)
--- NOTE | 2021-06-02 14:07 | RAD REPORT ---
EXAM DESCRIPTION: RAD - Chest Single View - 06/02/2021 1:57 pm CLINICAL HISTORY: COUGH Chest pain. COMPARISON: Abdomen 1 View (KUB) dated 07/10/2018; Chest Single View dated 07/09/2018; Chest Single Vie w dated 07/08/2018; Chest Single View dated 06/28/2018 FINDINGS: Portable technique limits examination quality. Small opacity/infiltrate left retrocardiac region is present likely representing pneumonia. The heart is normal in size. No displaced fractures. IMPRESSION: Small pneumonia suspected left retrocardiac region.
[2021-06-02 14:20] LABS: ALT/SGPT 26 U/L (12-78); AST/SGOT 18 U/L (15-37); Albumin 3.9 g/dL (3.4-5.0); Alkaline Phosphatase 60 U/L (45-117); BUN Blood Urea Nitrogen 15 mg/dL (7-18); Bicarbonate 26 mmol/L (21-32); Bilirubin Direct < 0.1 mg/dL (0-0.2); Bilirubin Total 0.3 mg/dL (0.2-1.0); Glucose Level 108 mg/dL (74-106); Magnesium 2.3 mg/dL (1.8-2.4); NT PRO-BNP 167 pg/mL (<125); Potassium 3.7 mmol/L (3.5-5.1); Protein, Total 8.2 g/dL (6.4-8.2); Sodium Level 143 mmol/L (136-145); Troponin (Emerg Dept Use Only) < 0.02 ng/mL (0.0-0.045)
[2021-06-02] MEDS ORDERED: NA CHLORIDE 0.9% 1,000 ML ONE (14:55)
[2021-06-02] MEDS ORDERED: NA CHLORIDE 0.9% 100 ML ONE (14:56)
[2021-06-02] MEDS ORDERED: LEVETIRACETAM 500 MG/5 ML VIAL IV ONE (14:56)
--- NOTE | 2021-06-02 14:57 | ER ---
Nurse's Notes [facility] Name: Clemencia Terry Age: 66 yrs Sex: Female : 1955 Arrival Date: 06/02/2021 Time: 12:28 Bed 3 Private MD: Diagnosis: Epileptic seizures related to external causes;Abnormal brain scan-increase in extra axial mass since 2019 Presentation: 06/02 12:28 Chief complaint: EMS states: residential called EMS after pt had seizure this am \T\ 6 0700 and has not returned to baseline. Coronavirus screen: Vaccine status: Patient reports receiving the 2nd dose of the covid vaccine. Ebola Screen: Patient denies travel to an Ebola-affected area in the 21 days before illness onset. Initial Sepsis Screen: Does the patient meet any 2 criteria? No. Patient's initial sepsis screen is negative. Does the patient have a suspected source of infection? No. Patient's initial sepsis screen is negative. Risk Assessment: Do you want to hurt yourself or someone else? Patient reports no desire to harm self or others. Onset of symptoms was June 02, 2021. 12:28 Method Of Arrival: EMS: [facility] 12:28 Acuity: KAUSHIK 3 [facility] Triage Assessment: 12:35 General: Appears in no apparent distress. comfortable, well groomed, Behavior is calm, [facility] cooperative. Pain: Denies pain. Neuro: Oriented to NORMAL FOR SELF. . Seizure activity reported prior to arrival. Historical: - Allergies: 12:34 No Known Allergies; [facility] - [place] Meds: 12:38 aspirin 81 mg Oral tab [Active]; fenofibrate 145 mg oral once daily [Active]; Keppra jl7 500 mg Oral tab 2 times per day [Active]; atorvastatin 20 mg oral tab 1 tab once daily [Active]; metoprolol tartrate 25 mg Oral tab 1 tab 2 times per day [Active]; omeprazole 40 mg Oral cpDR 1 cap once daily [Active]; - PMHx: 12:34 Depression; Hyperlipidemia; mental disorder; TIA; [facility] 12:38 GERD; Hypertensive disorder; malignant neoplasm of brain; convulsions; jl7 - Immunization history:: Adult Immunizations unknown. - Social history:: Smoking status: Patient denies any tobacco usage or history of. - Family history:: not pertinent. Screenin:43 Abuse screen: unable to obtain, pt nonverbal. Nutritional screening: No deficits noted. jl7 Tuberculosis screening: No symptoms or risk factors identified. Fall Risk Secondary diagnosis (15 points) seizures, impaired mobility, IV access (20 points). Total Luong Fall Scale indicates High Risk Score (45 or more points). Fall prevention measures have been instituted. Side Rails Up X 2 Placed Close to Nursing Station Frequent Obs/Assessments Occuring. Assessment: 12:34 General: Appears in no apparent distress. comfortable, slender, Behavior is calm, jh6 cooperative. 12:34 Pain: Denies pain. Neuro: Level of Consciousness is awake, obeys commands. jh6 Cardiovascular: No deficits noted. Respiratory: No deficits noted. 13:23 General: attempted twice for iv and was unsuccessful. . jh6 14:51 Reassessment: Patient and/or family updated on plan of care and expected duration. Pain jh6 level reassessed. Patient is alert, oriented x 3, equal unlabored respirations, skin warm/dry/pink. pt opens eye to verbal stimuli. no further signs or episodes of seizures noted. when asked if she was hurting pt shook head no. Patient denies pain at this time. 15:30 Reassessment: Patient and/or family updated on plan of care and expected duration. Pain jh6 level reassessed. Patient is alert, oriented x 3, equal unlabored respirations, skin warm/dry/pink. 16:45 Reassessment: No changes from previously documented assessment. Patient is alert, jh6 oriented x 3, equal unlabored respirations, skin warm/dry/pink. pt resting occasional no productive cough. no episodes of seizures noted. Patient denies pain at this time. 20:10 General: Appears in no apparent distress. Behavior is calm. tw5 23:44 Neuro: Level of Consciousness is stuporous, Patient will look at nursing staff when tw5 they are asking questions, but will only choose to answer some questions. . 06/03 01:00 General: Spoke with hospitalist regarding Ms. Terry's refusal of the Keppra. tw5 01:22 Reassessment: Patient appears in no apparent distress at this time. No changes from tw5 previously documented assessment. 03:15 General: Appears in no apparent distress. Behavior is calm. tw5 03:15 General: checked patient for incontinence, brief remains dry at this time.. tw5 05:01 Reassessment: Patient appears in no apparent distress at this time. Respiratory: Airway tw5 is patent Respiratory effort is even, unlabored. Vital Signs: 06/02 12:28 BP 164 / 79; Pulse 74; Resp 17; Temp 99(O); Pulse Ox 100% ; Weight 53.98 kg; Height 62 jh6 in. (157.48 cm); 14:52 BP 148 / 65; Pulse 68; Resp 16; Pulse Ox 97% ; jh6 16:39 BP 126 / 77; Pulse 83; Resp 14; Pulse Ox 100% ; jl7 20:10 BP 128 / 78; Pulse 67; Resp 18; Pulse Ox 97% on R/A; tw5 23:44 BP 130 / 61; Pulse 71; Resp 18; Pulse Ox 96% on R/A; tw5 06/03 01:22 BP 122 / 57; Pulse 68; Resp 18; Pulse Ox 97% on R/A; tw5 03:15 BP 113 / 65; Pulse 67; Resp 16; Pulse Ox 98% on R/A; tw5 05:01 BP 128 / 64; Pulse 65; Resp 14; Pulse Ox 98% on R/A; tw5 06/02 12:28 Body Mass Index 21.77 (53.98 kg, 157.48 cm) 6 Azul Coma Score: 06/02 12:35 Eye Response: spontaneous(4). Verbal Response: incomprehensible(2). Motor Response: jh6 obeys commands(6). Total: 12. ED Course: 12:28 Patient arrived in ED. am2 12:28 Radha Mccoy, CAMPBELL is Primary Nurse. jh6 12:31 Dony Mccann MD is Attending Physician. robyn 12:34 Triage completed. jh6 12:38 Arm band placed on right wrist. jl7 12:43 Patient has correct armband on for positive identification. Placed in gown. Bed in low jl7 position. Call light in reach. Side rails up X 1. Seizure precautions initiated. test engineering intern on. Pulse ox on. NIBP on. 13:09 EKG done, by ED staff, reviewed by Dony Mccann MD. 3 13:[address] via stretcher. jh6 13:20 X-ray(s) taken. jh6 13:25 CT Head Brain wo Cont In Process Unspecified. EDMS 13:57 XRAY Chest (1 view) In Process Unspecified. EDMS 14:53 Fracisco Cesar is Hospitalizing Provider. [facility] 18:44 No provider procedures requiring assistance completed. Patient admitted, IV remains in [facility] place. intact, No redness/swelling at site. 18:53 Blood Culture Adult (2) Sent. [facility] 19:15 Primary Nurse role handed off by Radha Mccoy RN 2 20:10 Laurel Brady is Primary Nurse. tw5 20:10 Appears to be sleeping. tw5 20:10 Seizure precautions initiated. Door closed. Noise minimized. Moved to private room. tw5 Warm blanket given. Verbal reassurance given. 06/03 07:22 Primary Nurse role handed off by Laurel Brady 07:22 Tad Padilla, CAMPBELL is Primary Nurse. bp Administered Medications: 06/02 15:00 Drug: NS 0.9% 1000 ml Route: IV; Rate: 125 ml/hr; [facility]; [facility] 06/03 05:02 Follow up: IV Status: Completed infusion [facility] 06/02 15:00 Drug: Keppra (levETIRAcetam) 1000 mg Route: IV; Rate: per protocol; Site: right [address]; 16:48 Follow up: Response: No adverse reaction; IV Status: Completed infusion [facility] 18:52 Drug: Rocephin (cefTRIAXone) 1 grams Route: IV; Rate: per protocol; Site: right [facility]; 06/03 05:02 Follow up: IV Status: Completed infusion [facility] Outcome: 06/02 14:56 Decision to Hospitalize by Provider. robyn 18:44 Admitted to ER Hold. Please see [facility] for further documentation. [facility] 18:44 Condition: stable 18:44 Discharge instructions given to [facility], Instructed on the need for admit, Demonstrated understanding of instructions. 06/03 09:19 Patient left the ED. ll1 Signatures: Dispatcher [employer] EDMS Dony Mccann MD MD cha Leal, Jahala, RN RN 7 Radha Campuzano formerly [facility] Laurel Sinclair 3 Tad Padilla RN RN Rakesh Rubio 2 Shabbir Mckeon RN RN 1 Laurel Brady tw5 Radha Mccoy, RN RN jh6
--- NOTE | 2021-06-02 14:58 | EDPHYS ---
Physician Documentation [facility] Name: Clemencia Terry Age: 66 yrs Sex: Female : 1955 Arrival Date: 06/02/2021 Time: 12:28 Bed 3 Private MD: ANALI Physician Dony Mccann HPI: 06/02 14:48 This 66 yrs old Black Female presents to ER via EMS with complaints of Seizure. robyn 14:48 The patient presents after having a single isolated seizure, that lasted 2 minute(s). robyn Character of seizure(s): Loss of consciousness: the patient experienced loss of consciousness, Motor activity: focal activity, Incontinence: none, Apnea: the patient did not experience apnea, Circulation: the patient did not experience evidence of pulse disturbance. Seizure onset: this morning. Context: the seizure(s) was witnessed, by the residential staff. Seizure Hx: Original onset: longstanding, Last seizure: The patient's last seizure is unknown, Seizure medications: Keppra. Associated injury: The patient did not suffer any apparent associated injury. The patient has experienced similar episodes in the past, multiple times. Historical: - Allergies: 12:34 No Known Allergies; jh6 - Home Meds: 12:38 aspirin 81 mg Oral tab [Active]; fenofibrate 145 mg oral once daily [Active]; Keppra jl7 500 mg Oral tab 2 times per day [Active]; atorvastatin 20 mg oral tab 1 tab once daily [Active]; metoprolol tartrate 25 mg Oral tab 1 tab 2 times per day [Active]; omeprazole 40 mg Oral cpDR 1 cap once daily [Active]; - PMHx: 12:34 Depression; Hyperlipidemia; mental disorder; TIA; jh6 12:38 GERD; Hypertensive disorder; malignant neoplasm of brain; convulsions; jl7 - Immunization history:: Adult Immunizations unknown. - Social history:: Smoking status: Patient denies any tobacco usage or history of. - Family history:: not pertinent. ROS: 14:48 Constitutional: Negative for fever, chills, and weight loss, Eyes: Negative for injury, robyn pain, redness, and discharge, ENT: Negative for injury, pain, and discharge, Neck: Negative for injury, pain, and swelling, Cardiovascular: Negative for chest pain, palpitations, and edema, Respiratory: Negative for shortness of breath, cough, wheezing, and pleuritic chest pain, Abdomen/GI: Negative for abdominal pain, nausea, vomiting, diarrhea, and constipation, Back: Negative for injury and pain, : Negative for injury, bleeding, discharge, and swelling, MS/Extremity: Negative for injury and deformity, Skin: Negative for injury, rash, and discoloration, Psych: Negative for depression, anxiety, suicide ideation, homicidal ideation, and hallucinations, Allergy/Immunology: Negative for hives, rash, and allergies, Endocrine: Negative for neck swelling, polydipsia, polyuria, polyphagia, and marked weight changes, Hematologic/Lymphatic: Negative for swollen nodes, abnormal bleeding, and unusual bruising. 14:48 Neuro: Positive for altered mental status, weakness. Exam: 14:48 Constitutional: This is a well developed, well nourished patient who is awake, alert, robyn and in no acute distress. Head/Face: Normocephalic, atraumatic. Eyes: Pupils equal round and reactive to light, extra-ocular motions intact. Lids and lashes normal. Conjunctiva and sclera are non-icteric and not injected. Cornea within normal limits. Periorbital areas with no swelling, redness, or edema. ENT: Nares patent. No nasal discharge, no septal abnormalities noted. Tympanic membranes are normal and external auditory canals are clear. Oropharynx with no redness, swelling, or masses, exudates, or evidence of obstruction, uvula midline. Mucous membranes moist. Neck: Trachea midline, no thyromegaly or masses palpated, and no cervical lymphadenopathy. Supple, full range of motion without nuchal rigidity, or vertebral point tenderness. No Meningismus. Chest/axilla: Normal chest wall appearance and motion. Nontender with no deformity. No lesions are appreciated. Cardiovascular: Regular rate and rhythm with a normal S1 and S2. No gallops, murmurs, or rubs. Normal PMI, no JVD. No pulse deficits. Respiratory: Lungs have equal breath sounds bilaterally, clear to auscultation and percussion. No rales, rhonchi or wheezes noted. No increased work of breathing, no retractions or nasal flaring. Abdomen/GI: Soft, non-tender, with normal bowel sounds. No distension or tympany. No guarding or rebound. No evidence of tenderness throughout. Back: No spinal tenderness. No costovertebral tenderness. Full range of motion. Female : Normal external genitalia. Skin: Warm, dry with normal turgor. Normal color with no rashes, no lesions, and no evidence of cellulitis. MS/ Extremity: Pulses equal, no cyanosis. Neurovascular intact. Full, normal range of motion. Neuro: Awake and alert, GCS 15, oriented to person, place, time, and situation. Cranial nerves II-XII grossly intact. Motor strength 5/5 in all extremities. Sensory grossly intact. Cerebellar exam normal. Normal gait. Psych: Awake, alert, with orientation to person, place and time. Behavior, mood, and affect are within normal limits. 14:48 ECG was reviewed by the Attending Physician. Vital Signs: 12:28 BP 164 / 79; Pulse 74; Resp 17; Temp 99(O); Pulse Ox 100% ; Weight 53.98 kg; Height 62 6 in. (157.48 cm); 14:52 BP 148 / 65; Pulse 68; Resp 16; Pulse Ox 97% ; jh6 16:39 BP 126 / 77; Pulse 83; Resp 14; Pulse Ox 100% ; jl7 20:10 BP 128 / 78; Pulse 67; Resp 18; Pulse Ox 97% on R/A; tw5 23:44 BP 130 / 61; Pulse 71; Resp 18; Pulse Ox 96% on R/A; tw5 06/03 01:22 BP 122 / 57; Pulse 68; Resp 18; Pulse Ox 97% on R/A; tw5 03:15 BP 113 / 65; Pulse 67; Resp 16; Pulse Ox 98% on R/A; tw5 05:01 BP 128 / 64; Pulse 65; Resp 14; Pulse Ox 98% on R/A; tw5 06/02 12:28 Body Mass Index 21.77 (53.98 kg, 157.48 cm) [facility] [place] Coma Score: 06/02 12:35 Eye Response: spontaneous(4). Verbal Response: incomprehensible(2). Motor Response: [facility] obeys commands(6). Total: 12. MDM: 12:31 Patient medically screened. robyn 14:52 Differential diagnosis: cerebral vascular accident, cardiac arrhythmia, seizure. Data robyn reviewed: vital signs, nurses notes, lab test result(s), EKG, radiologic studies, CT scan, plain films. Data interpreted: reel tender: rate is 74 beats/min, rhythm is regular, Pulse oximetry: on room air is 100 %. Test interpretation: by ED physician or midlevel provider: ECG, plain radiologic studies. Counseling: I had a detailed discussion with the patient and/or guardian regarding: the historical points, exam findings, and any diagnostic results supporting the discharge/admit diagnosis, lab results, radiology results, the need for further work-up and treatment in the hospital. 06/02 12:39 Order name: Basic Metabolic Panel; Complete Time: 14:45 [facility] 06/02 12:39 Order name: CBC with Diff; Complete Time: 14:45 [facility] 06/02 12:39 Order name: LFT's; Complete Time: 14:45 [facility] 06/02 12:39 Order name: Magnesium; Complete Time: 14:45 [facility] 06/02 12:39 Order name: NT PRO-BNP; Complete Time: 14:45 [facility] 06/02 12:39 Order name: PT-INR; Complete Time: 14:45 [facility] 06/02 12:39 Order name: Troponin (emerg Dept Use Only); Complete Time: 14:45 [facility] 06/02 12:39 Order name: Urine Culture [facility] 06/02 12:39 Order name: SARS-COV-2 RT PCR (Document "Date of Onset" if Symptomatic); Complete Time: robyn 14:45 06/02 13:21 Order name: Urine Dipstick-Ancillary; Complete Time: 14:45 [facility] 06/02 18:26 Order name: Blood Culture Adult (2) [facility] 06/03 03:22 Order name: CBC with Automated Diff [facility] 06/03 03:47 Order name: Basic Metabolic Panel [facility] 06/03 03:47 Order name: Phosphorus [facility] 06/02 12:39 Order name: XRAY Chest (1 view); Complete Time: 14:45 [facility] 06/02 12:39 Order name: EKG; Complete Time: 12:40 [facility] 06/02 12:39 Order name: Cardiac monitoring; Complete Time: 12:47 [facility] 06/02 12:39 Order name: EKG - Nurse/Tech; Complete Time: 12:47 [facility] 06/02 12:39 Order name: IV Saline Lock; Complete Time: 15:10 [facility] 06/02 12:39 Order name: Labs collected and sent; Complete Time: 15:10 [facility] 06/02 12:39 Order name: O2 Per Protocol; Complete Time: 12:47 robyn 06/02 12:39 Order name: O2 Sat Monitoring; Complete Time: 12:47 robyn 06/02 12:39 Order name: Seizure Precautions; Complete Time: 12:47 robyn 06/02 13:02 Order name: CT Head Brain wo Cont; Complete Time: 14:45 robyn 06/02 16:17 Order name: Brain With Cont EDMS 06/03 03:47 Order name: Magnesium EDMS 06/03 06:22 Order name: Blood Culture [facility] 06/02 12:39 Order name: Urine Dipstick-Ancillary (obtain specimen); Complete Time: 13:09 [facility] EC:48 Rate is 75 beats/min. Rhythm is regular. QRS [place] is Normal. SC interval is normal. QRS robyn interval is normal. QT interval is normal. No Q waves. T waves are Normal. No ST changes noted. Clinical impression: NSR w/ Non-specific ST/T Changes and No evidence of ischemia. Interpreted by me. Reviewed by me. Administered Medications: 15:00 Drug: NS 0.9% 1000 ml Route: IV; Rate: 125 ml/hr; Site: [facility]; [facility] 06/03 05:02 Follow up: IV Status: Completed infusion 5 06/02 15:00 Drug: Keppra (levETIRAcetam) 1000 mg Route: IV; Rate: per protocol; Site: [address]; 16:48 Follow up: Response: No adverse reaction; IV Status: Completed infusion [facility] 18:52 Drug: Rocephin (cefTRIAXone) 1 grams Route: IV; Rate: per protocol; Site: [address]; 06/03 05:02 Follow up: IV Status: Completed infusion [facility] Disposition Summary: 06/02/21 14:56 Hospitalization Ordered Hospitalization Status: Observation robyn Provider: Fracisco Cesar cha Condition: Stable robyn Problem: new robyn Symptoms: have improved robyn Bed/Room Type: Standard robyn Location: Telemetry/MedSurg (observation)(06/03/21 07:47) dw Room Assignment: 216(06/03/21 07:47) dw Diagnosis - Epileptic seizures related to external causes robyn - Abnormal brain scan - increase in extra axial mass since 2019 robyn Forms: - Medication Reconciliation Form robyn - SBAR form robyn Signatures: Dispatcher [employer] EDMS Elma Hinojosa Diana RN RN dw Dony Mccann MD MD cha Leal, Jahala RN RN jl7 Radha Mccoy RN RN jh6 Laurel Brady tw5 Corrections: (The following items were deleted from the chart) 06/02 13:14 13:03 Head Brain Wo Cont+CT.RAD.BRZ ordered. [facility]OK EDMS 18:45 14:56 Telemetry/MedSurg (observation) [facility] 18:45 14:56 [facility] 06/03 07:47 01 18:45 BR ER HOLD dw 06/03 07:47 06/02 18:45 ERHOLD- dw
--- NOTE | 2021-06-02 16:21 | P.HP ---
Certification for Inpatient Patient admitted to: Inpatient With expected LOS: >2 Midnights Practitioner: I am a practitioner with admitting privileges, knowledge of patient current condition, hospital course, and medical plan of care. Services: Services provided to patient in accordance with Admission requirements found in Title 42 Section 412.3 of the Code of Federal Regulations Patient History Date of Service: 06/02/21 Reason for admission: Seizures History of Present Illness: 66-[facility]-old [facility] resident with a history of brain mass-neoplastic, dysphagia, history of seizure disorder was [facility] department due to witnessed seizure episode followed by altered mental status. UA done in the emergency department is negative for UTI. CT head report slightly increasing size of cerebral mass. Neurology Dr. Beasley was contacted who recommended hospitalization for further evaluation including an MRI. Patient awake and obeying commands during my examination in the ED. She is admitted for further management. Allergies No Known Drug Allergies Allergy (Verified 05/14/14 20:24) Unknown No Known Allergies Allergy (Uncoded 08/31/14 00:56) Unknown Home Medications: Atorvastatin Calcium [Lipitor*] 40 mg PO BEDTIME 12/02/13 Acetaminophen [Tylenol] 650 mg PO Q4HP PRN 06/29/18 Aspirin Chewable [Aspirin Chewable*] 81 mg PO DAILY 06/29/18 Hydrocortisone Cream [Hydrocortisone 1% Cream*] 1 appl TOP Q4HP PRN 06/29/18 Methylphenidate HCl [Ritalin] 5 mg PO DAILY 06/29/18 Mirtazapine [Remeron*] 15 mg PO BEDTIME 06/29/18 traMADol HCL [Ultram*] 50 mg PO Q8HP PRN 06/29/18 Metoprolol Tartrate [Lopressor*] 12.5 mg FT BID 6AM 6PM #60 tab 07/08/18 Pantoprazole Granules [Protonix Granules*] 40 mg FT DAILYAC #30 packet 07/08/18 Docusate Sodium [Colace] 5 ml FT BID PRN #1 bottle 07/10/18 Fluconazole [Diflucan] 100 mg FT DAILY #5 tablet 07/10/18 levoFLOXacin [Levaquin*] 500 mg FT DAILY #5 tab 07/10/18 - Past Medical/Surgical History Diabetic: No -: TIA -: Cutaneous Candidiasis -: Cancer of Brain -: Hyperlipidemia -: Brain tumor removal -: gall bladder stones removed -: tubal ligation - Family History Father -: Heart disease, Diabetes, Kidney disease, Other (see notes) Notes: Alzheimers Mother -: Hypertension Brother -: Heart disease Notes: cardiac stent - Social History Alcohol use: No CD- Drugs: No Caffeine use: No Review of Systems is unable to be obtained (Due to aphasia) Physical Examination - Physical Exam General: In no apparent distress, Other (Awake) HEENT: Mucous membr. moist/pink Neck: Supple, JVD not distended Respiratory: Clear to auscultation bilaterally, Normal air movement Cardiovascular: No edema, Regular rate/rhythm, Normal S1 S2, No murmurs Capillary refill: <2 Seconds Gastrointestinal: Normal bowel sounds, Soft and benign, No tenderness Musculoskeletal: No swelling, No tenderness Integumentary: No rashes, No cyanosis Neurological: Other (Right facial droop, patient moves all extremities) Lymphatics: No axilla or inguinal lymphadenopathy - Studies Laboratory Data (last 24 hrs) 06/02/21 13:41: PT 11.4, INR 0.99 06/02/21 13:41: WBC 9.50, Hgb 11.7 L, Hct 36.7, Plt Count 229 06/02/21 13:41: Sodium 143, Potassium 3.7, BUN 15, Creatinine 0.70, Glucose 108 H, Magnesium 2.3, Total Bilirubin 0.3, AST 18, ALT 26, Alkaline Phosphatase 60 Assessment and Plan - Problems (Diagnosis) (1) Brain tumor Current Visit: Yes Status: Acute (2) Seizures Current Visit: Yes Status: Acute (3) History of CVA (cerebrovascular accident) Current Visit: Yes Status: Acute (4) Oropharyngeal dysphagia Current Visit: Yes Status: Acute - Plan Admit patient to the medical floor. Supportive measures with IV hydration-normal saline. Increase home Keppra dose to 750 mg every 12 hours. Ativan IV as needed for breakthrough seizures Obtain MRI of the brain with contrast to further evaluate the increase in size of brain mass. Neurology consulted. Mechanical soft diet. Validate and reconcile home medications. Seizure and fall precautions. - Advance Directives Does patient have a Living Will: No Does patient have a Durable POA for Healthcare: No
[2021-06-02] MEDS ORDERED: LORazepam 2 MG/ML VIAL IV PRN (17:09)
[2021-06-02] MEDS ORDERED: ONDANSETRON 4 MG/2 ML VIAL IV PRN (17:09)
[2021-06-02] MEDS ORDERED: ACETAMINOPHEN 500 MG TAB PO PRN (17:09)
[2021-06-02 18:04] VITALS: BMI 21.0
[2021-06-02] MEDS ORDERED: NA CHLORIDE 0.9% 50 ML ONE (18:49)
[2021-06-02] MEDS ORDERED: CEFTRIAXONE 1000 MG/VIAL ONE (18:49)
[2021-06-02] MEDS: levETIRAcetam 500 MG TAB PO SCH (21:00)
[2021-06-02] MEDS ORDERED: levETIRAcetam 500 MG TAB ONE (23:30)
[2021-06-02] MEDS: NA CHLORIDE 0.9% 1,000 ML IV SCH (23:39)
[2021-06-03 03:19] LABS: Absolute Lymphocytes (CBC) 1.4 K/uL (0.7-4.9); Hematocrit 31.4 % (36.0-45.0); Lymphocytes % 25.4 % (15.3-44.8); MPV 8.9 fL (7.6-11.3); RBC Red Blood Cell Count 4.02 M/uL (3.86-4.86)
[2021-06-03 03:47] LABS: BUN Blood Urea Nitrogen 9 mg/dL (7-18); Bicarbonate 25 mmol/L (21-32); Glucose Level 113 mg/dL (74-106); Phosphorus 2.2 mg/dL (2.5-4.9); Potassium 3.3 mmol/L (3.5-5.1); Sodium Level 144 mmol/L (136-145)
--- NOTE | 2021-06-03 06:33 | P.PN ---
Date of Service: 06/03/21 Subjective: no seizure activity overnight. no acute events. patient refused PO meds this morning denies pain, +confusion ROS: difficult to obtain secondary to confusion Physical Exam General: awake, oriented to self only, NAD HEENT: Mucous membr. moist/pink, sclera anicteric Respiratory: Clear to auscultation bilaterally, Normal air movement Cardiovascular: No edema, Regular rate/rhythm, no murmur Abd: soft, nontender, nondistended MSK: no joint tenderness Integumentary: No rashes, No cyanosis Neurological: right facial droop, patient moves all extremities, tic with shaking head left/right at times when responding to questions Problem List New seizure activity h/o absence seizures Brain tumor h/o CVA h/o oropharyngeal dysphagia continue IVF for now patient tired, not eating much, likely in part due to keppra daughter at bedside this morning, reports patient has not taken any seizure medication in 2 decades decrease keppra dose to 500mg BID ativan PRN for breakthrough Neurology consulted - recommended MRI to further eval CT head noted brain tumor enlarged compared to prior imaging enlarging tumor likely the cause of seizures convulsive seizure activity, change from prior absence seizure. last seizure was > 20 yrs ago Seizure and fall precautions. Dispo: anticipate dc back to NH tomorrow if continues to improve / stable, and pending MRI results
[2021-06-03] MEDS: levETIRAcetam 500 MG TAB PO SCH ×2 (09:33→21:40)
[2021-06-03] MEDS: NA CHLORIDE 0.9% 1,000 ML IV SCH (09:33)
--- NOTE | 2021-06-03 11:18 | EKG ---
Test Date: 2021-06-02 Test Time: 12:53:25 Elevator Installer: KRAIG MEASUREMENT RESULTS: Intervals: Rate: 75 [place]: 142 QRSD: 84 QT: 432 QTc: 482 [place]: P: 74 [place]: 142 QRS: 55 T: 28 INTERPRETIVE STATEMENTS: Normal sinus rhythm Nonspecific T wave abnormality Prolonged QT Abnormal ECG Compared to ECG 06/28/2018 13:32:48 T-wave abnormality now present Prolonged QT interval now present Sinus tachycardia no longer present Atrial abnormality no longer present ST (T wave) deviation no longer present Electronically Signed On 06-03-21 11:14:22 SCHOOL OFFICE MANAGER by Max Plata
[2021-06-03] MEDS ORDERED: HYDRALAZINE HCL 20 MG/ML VIAL IV PRN (16:25)
[2021-06-03] MEDS: METOPROLOL TAR 25 MG TAB PO SCH (17:12)
--- NOTE | 2021-06-03 20:42 | CON ---
Reason For Consultation: Consultation called because of seizures and brain mass. History Of Present Illness: Ms. Terry is a 66-year-old right-handed patient with a history of a resected glioblastoma multiforme done more than 20 years ago, who had localization-relat ed seizures around the time of her initial surgery and discovery of a mass, which actually was contro lled after the surgery and treatment with Depakote. Her family notes she had control of the seizures and did have side effects of somnolence and has had the medication stopped. She apparently did very well for a number of years, but due to progressive nature of the disease and involvement of the fron anai region, she has actually not been ambulatory for more than 5 years and lives in a [facility]. The patient comes back to [facility] on the 02 of June after being found urinated and on th e floor and was apparently actively having another seizure. Her brain CT scan identified a 2.9 x 2 c m mass in the anterior falx, which was increased in size from 2 x 2 cm in 2019 and that is around 2 y ears ago. 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 There is also the postsurgical changes of the lef t frontal lobotomy with moderate white matter hypodensity present in the periventricular and deep whi te matter region. The patient was put on Keppra after being given a load of Keppra 1 g. She is now on Keppra 500 mg twice daily. She has comorbid dyslipidemia, hypertension, which are managed by [facility] physicians. Since her hospitalization, she has had no additional seizure-like episodes. Br ain EEG is pending as well as MRI. Past Medical History: As noted above in addition to depression. Surgical History: Craniotomy and tumor resection in the frontal lobe. Allergies: NO KNOWN DRUG ALLERGIES. Medications: Aspirin 81 mg daily, Keppra now 500 mg twice daily, atorvastatin 20 mg daily, metoprolo l 25 mg twice daily, and omeprazole 40 mg daily. Family History: Noncontributory. Social History: No alcohol, tobacco, or IV drug use. She lives in a [facility]. Family is present. Review of Systems: Aside from mentioned above, no recent fevers, chills, myalgias, arthralgias, and like as noted she is nonambulatory in a wheelchair. Physical Examination: Vital Signs: Blood pressure ranged 156 systolic to 183 systolic/69 to 79, pulse 71 to 82, temperatur e 97.5, oxygen saturation 98 to 99% on room air. Respiratory rate 16 to 18. Weight 119 pounds. Hei ght 5 feet 2 inches. General: Ms. Terry is resting in bed. She is leaning to the right. She does have a cup held in the right hand and was eating lunch at the time of my evaluation. Despite the mass and prior resection, she has no obvious focal cranial nerve deficits. She is very slow to respond with expressive aphasi a and some difficulty in comprehending commands for instance with difficulty with right, left command , she could not take the right index finger and touch the left earlobe, but she did eventually identi fy the right and the left hand independently. Otherwise, cranial nerves show no focal deficits. On motor examination, diffuse weakness in the upper extremities from 4 to 5. Lower extremities very lit tle movement noted and not able to do coordinated activity and decreased sensation in a stocking-glov e loss in the lower and upper extremities and she is nonambulatory. Laboratory Studies: Complete blood count with differential shows a normal white blood cell count. H emoglobin initially was 11.9, after hydration 9.9, platelets 188. Coagulation panel is normal. Chem istries essentially unremarkable. Glucose ranged from 108 to 113. Liver function studies are normal . Urinalysis showed 2+ protein and otherwise unremarkable. Keppra level is pending. COVID-19 test is negative. Chest x-ray shows a small pneumonia suspected in the left retrocardiac region. Electro cardiogram shows normal sinus rhythm, nonspecific T-wave abnormality. Prolonged QT. Assessment: Ms. Terry is a 66-year-old patient with a left frontal cavernoma and a resected glioblas gale multiforme that was done many years ago. She now likely has localization-related complex partia l seizures following increase in size of frontal falx mass. She is on Keppra 500 mg twice daily. Nikunj kim does appear to have pneumonia and is being addressed by her primary care team. She has dyslipidemia and hypertension that is being addressed by Lipitor and Lopressor. At this poin t, the family does not want more aggressive treatment. They were advised that if aggressive treatmen t is sought, she may require their surgical intervention. They are not wanting to do that. At this point, after EEG and MRI of the brain, she will be discharged with treatment of Keppra 500 mg twice d aily. Check blood levels within 10 days and may adjust for therapeutic level as appropriate. She ma y also require additional medications if there are breakthrough seizures. She may be discharged back to her care facility once her workup is complete and possible pneumonia treated. BOZENA/YOLY Voice ID: [id number] Report ID: [id number]
[2021-06-03] MEDS ORDERED: ATORVASTATIN 20 MG TAB PO SCH (21:00)
[2021-06-04] MEDS: NA CHLORIDE 0.9% 1,000 ML IV SCH ×2 (01:33→08:28)
[2021-06-04] MEDS ORDERED: POTASSIUM 25 MEQ EFFERV TAB PO ONE (02:44)
[2021-06-04] MEDS: METOPROLOL TAR 25 MG TAB PO SCH (05:46)
[2021-06-04 05:56] LABS: Absolute Lymphocytes (CBC) 1.3 K/uL (0.7-4.9); Hematocrit 34.5 % (36.0-45.0); Lymphocytes % 18.1 % (15.3-44.8); RBC Red Blood Cell Count 4.46 M/uL (3.86-4.86)
[2021-06-04 06:13] LABS: BUN Blood Urea Nitrogen 7 mg/dL (7-18); Bicarbonate 24 mmol/L (21-32); Glucose Level 129 mg/dL (74-106); Magnesium 2.2 mg/dL (1.8-2.4); Potassium 4.8 mmol/L (3.5-5.1); Sodium Level 145 mmol/L (136-145)
[2021-06-04] MEDS ORDERED: LORazepam 2 MG/ML VIAL IV ONE ×2 (07:39→10:01)
[2021-06-04] MEDS: levETIRAcetam 500 MG TAB PO SCH (08:27)
[2021-06-04 09:17] VITALS: O2SAT 100
--- NOTE | 2021-06-04 10:50 | RAD REPORT ---
EXAM DESCRIPTION: MRI - Brain W/Wo Cont - 06/04/2021 10:13 am CLINICAL HISTORY: eval mass, new seizure COMPARISON: Brain Wo Cont dated 06/28/2018; MRI BRAIN W WO CONTRAST dated 05/14/2014; MRI BRAIN WITHO UT CONTRAST dated 12/15/2013; MRA HEAD W O CONTRAST dated 12/15/2013; MRI BRAIN W WO CONTRAST dated 12/29; MRI BRAIN W WO CONTRAST dated 06/19/2013; MR STROKE PROTOCOL dated 04/25/2013; HEAD BRAIN W O C ONTRAST dated 04/24/2013; Head Brain Wo Cont dated 06/02/2021 TECHNIQUE: Sagittal T1-weighted images were obtained along with PD/heavily T2-weighted and T2-FLAIR images. Axial DWI and ADC mapping sequences were also obtained along with coronal heavily T2-weighted images were obtained. IV contrast was administered. Several of the sequences are degraded by motion artifact. FINDINGS: Large area of encephalomalacia again noted in the left frontal lobe. Cerebral atrophy. Vas ogenic edema in the right frontal lobe is similar. Enlarging lobular 3.4 x 2.3 cm mass at the corpus callosum and previously measuring 2 cm x 2 cm using similar measurement technique. This is compared with 06/28/2018. 13 mm lesion along the inferior rig ht frontal lobe is new from prior. The lesion located medially along the inferior left frontal lobe n ow contacts the lesion at the corpus callosum and has slightly increased in size. There is intrinsic T1 hyperintensity within the right frontal lobe and corpus colossal lesion consistent with blood prod ucts. Mild patchy enhancement is present at all 3 lesions. The lesions have a rim of T2 hypointensity . Gliosis posterior to the left frontal lobe surgical cavity is similar. No acute infarct is identif ied. . Local mass effect from the lesion in the corpus callosum but no true midline shift is present. No hyd rocephalus. Paranasal sinuses are well aerated. No mastoid effusion. IMPRESSION: New and enlarging bilateral frontal lobe lesions which have imaging features typical of cavernous malformations and may be related to prior therapy. This could be a source of the patient's seizures. Suggest neurologic and/or neurosurgical referral.
[2021-06-04 12:17] VITALS: TEMP 97.1
[2021-06-04 16:37] VITALS: BP 146/65
--- NOTE | 2021-06-04 18:10 | P.DS ---
Admission Date: 06/02/21 Discharge Date: 06/04/21 Disposition: TRANSFER TO SNF Discharge Condition: FAIR Reason for Admission: Seizures Consultations: Neurology - Dr. Beasley Procedures: CT head (06/02): FINDINGS: [place] mildly hyperdense mass along the anterior falx measures 2.9 x 2.0 cm, increased in size since 2019 study which time it measured 2.0 x 2.0 cm.Previous MR imaging this lesion demonstrated features of a cavernoma. Additional similar lesions are suspected in the frontal lobes as well. Postsurgical changes of left frontal lobectomy are present. Moderate white matter hypodensity is present in the periventricular and deep white matter. No acute bleed is present. The paranasal sinuses and mastoids are clear. Postsurgical changes are present left-sided calvarium craniotomy changes evident. IMPRESSION: Size increase in the anterior falx extra-axial mass since 2019 as detailed. Additional similar lesions are noted as well in the frontal lobes. Prior MR imaging from 2019 demonstrated features of cavernoma for these lesions. No acute hemorrhage is evident. MRI brain (06/04): FINDINGS: Large area of encephalomalacia again noted in the left frontal lobe. Cerebral atrophy. Vasogenic edema in the right frontal lobe is similar. Enlarging lobular 3.4 x 2.3 cm mass at the corpus callosum and previously measuring 2 cm x 2 cm using similar measurement technique. This is compared with 06/28/2018. 13 mm lesion along the inferior right frontal lobe is new from prior. The lesion located medially along the inferior left frontal lobe now contacts the lesion at the corpus callosum and has slightly increased in size. There is intrinsic T1 hyperintensity within the right frontal lobe and corpus colossal lesion consistent with blood products. Mild patchy enhancement is present at all 3 lesions. The lesions have a rim of T2 hypointensity. Gliosis posterior to the left frontal lobe surgical cavity is similar. No acute infarct is identified. Local mass effect from the lesion in the corpus callosum but no true midline shift is present. No hydrocephalus. Paranasal sinuses are well aerated. No mastoid effusion. IMPRESSION: New and enlarging bilateral frontal lobe lesions which have imaging features typical of cavernous malformations and may be related to prior therapy. This could be a source of the patient's seizures. Suggest neurologic and/or neurosurgical referral. Problem List New seizure activity h/o absence seizures Brain tumor h/o CVA h/o oropharyngeal dysphagia Brief History of Present Illness: 66[facility] with a history of brain mass-neoplastic, dysphagia, history of seizure disorder [facility] due to witnessed seizure episode followed by altered mental status. UA done in the emergency department is negative for UTI. CT head report slightly increasing size of cerebral mass. Neurology Dr. Beasley was contacted who recommended hospitalization for further evaluation including an MRI. Patient awake and obeying commands during my examination in the ED. She is admitted for further management. Hospital Course: Patient was loaded with Keppra and continued on 500 mg twice daily. She did not have any recurrent seizure-like activity. Neurology was consulted and reviewed CT findings. MRI with contrast was obtained to further evaluate the enlarging brain tumor/lesions. This confirmed enlarging tumor, new lesions. No he rniation. Patient's mentation improved. She was not found to have any other infection Initial chest x-ray did note the possibility of a left sided pneumonia. Patient was without any cough or shortness of breath, she remained afebrile and without any leukocytosis. She was not treated with antibiotics. The findings were reviewed with neurology and patient's daughter. Current plan is to avoid aggressive treatment/therapy. No plans for neurosurgery/need for neurosurgery evaluation. Recommended out of hospital DNR, consideration for hospice in the near future. Vital Signs/Physical Exam: Physical Exam General: awake, oriented to self only, NAD HEENT: Mucous membr. moist/pink, sclera anicteric Respiratory: Clear to auscultation bilaterally, Normal air movement Cardiovascular: No edema, Regular rate/rhythm, no murmur Integumentary: No rashes, No cyanosis Neurological: right mild facial droop, patient moves all extremities, tic with shaking head left/right at times when responding to questions Temp Pulse Resp BP Pulse Ox 97.1 F 69 17 146/65 H 100 06/04/21 16:00 06/04/21 16:00 06/04/21 16:00 06/04/21 16:00 06/04/21 16:00 Laboratory Data at Discharge: WBC 6.90 K/uL (4.3-10.9) D 06/04/21 05:32 Hgb 11.2 g/dL (12.0-15.0) L 06/04/21 05:32 Hct 34.5 % (36.0-45.0) L 06/04/21 05:32 Plt Count 196 K/uL (152-406) 06/04/21 05:32 PT 11.4 SECONDS (9.5-12.5) 06/02/21 13:41 INR 0.99 06/02/21 13:41 Sodium 145 mmol/L (136-145) 06/04/21 05:32 Potassium 4.8 mmol/L (3.5-5.1) 06/04/21 05:32 BUN 7 mg/dL (7-18) 06/04/21 05:32 Creatinine 0.60 mg/dL (0.55-1.3) 06/04/21 05:32 Glucose 129 mg/dL (74-106) H 06/04/21 05:32 Phosphorus 1.9 mg/dL (2.5-4.9) L 06/04/21 06:39 Magnesium 2.2 mg/dL (1.8-2.4) 06/04/21 05:32 Total Bilirubin 0.3 mg/dL (0.2-1.0) 06/02/21 13:41 AST 18 U/L (15-37) 06/02/21 13:41 ALT 26 U/L (12-78) 06/02/21 13:41 Alkaline Phosphatase 60 U/L (45-117) 06/02/21 13:41 Home Medications: Atorvastatin Calcium [Lipitor*] 20 mg PO BEDTIME 12/02/13 Aspirin Chewable [Aspirin Chewable*] 81 mg PO DAILY 06/29/18 Docusate Sodium [Move It Along] 100 mg PO DAILY 06/02/21 Fenofibrate [Tricor*] 145 mg PO DAILY 06/02/21 Levetiracetam [Keppra] 500 mg PO BID 06/02/21 Loperamide HCl [Imodium A-D] 2 mg PO Q6HR PRN 06/02/21 Metoprolol Tartrate [Lopressor*] 25 mg PO BID 6AM 6PM 06/02/21 Omeprazole [Prilosec] 40 mg PO DAILY 06/02/21 Physician Discharge Instructions: Seizures likely due to progressively enlarging brain lesions. Neurology was consulted, and reviewed the MRI. Recommended Keppra 500mg BID, may need to increase dose based on seizure activity. As discussed, recommend consideration for out of hospital DNR, and possibly hospice in the near future. The lesions / masses will continue to increase leading to further seizures and eventual herniation. Unknown timeline. Diet: Regular Activity: Fall precautions Followup: NONE,NONE [Primary Care Provider] - Time spent managing pt's care (in minutes): 60
== END 2021-06-04 16:53 | DRG 100 ==
LOC: ER 12:17 → ERHOLD 16:05 → 2ND 06-03 08:16
PROVIDERS: ADMIT Internal Medicine; ATTEND Hospitalist
DX: G40.209 Localization-related (focal) (partial) symptomatic epilepsy and epileptic syndromes with complex partial seizures, not intractable, without status epilepticus (principal); J18.9 Pneumonia, unspecified organism; C71.9 Malignant neoplasm of brain, unspecified; R47.01 Aphasia; E78.5 Hyperlipidemia, unspecified; K21.9 Gastro-esophageal reflux disease without esophagitis; R13.12 Dysphagia, oropharyngeal phase; Z66 Do not resuscitate; Z79.899 Other long term (current) drug therapy; Z86.73 Personal history of transient ischemic attack (TIA), and cerebral infarction without residual deficits; Z85.841 Personal history of malignant neoplasm of brain; Z98.51 Tubal ligation status; Z79.82 Long term (current) use of aspirin; Z20.822 Contact with and (suspected) exposure to COVID-19
CPT/HCPCS: 36415; 70450; 70553; 71045; 80048; 80076; 80177; 81003; 83735; 83880; 84100; 84484; 85025; 85610; 87040; 87086; 87088; 93005; 96361; 96365; 96366; 96367; 99285; A9577; J0360; J1953; J7030; U0003

== ENCOUNTER 2022-01-19 12:40 | Observation (INO) | payer OTHER ==
[2022-01-19] MEDS ORDERED: ONDANSETRON 4 MG/2 ML VIAL ONE (13:32)
[2022-01-19] MEDS ORDERED: NA CHLORIDE 0.9% 1,000 ML ONE ×2 (13:32→22:24)
[2022-01-19 13:35] LABS: Hematocrit 39.6 % (36.0-45.0); Lymphocytes % 15.9 % (15.3-44.8); MCV 80.1 fL (80-100); MPV 9.1 fL (7.6-11.3); RBC Red Blood Cell Count 4.94 M/uL (3.86-4.86)
[2022-01-19 13:37] LABS: Blood Morphology Comment NOT SEEN (NOT SEEN); Platelet Estimate ADEQ; White Blood Cell Scan OK (OK)
[2022-01-19 17:03] LABS: Albumin 3.1 g/dL (3.4-5.0); Bilirubin Total 0.3 mg/dL (0.2-1.0); Potassium 3.9 mmol/L (3.5-5.1); Protein, Total 6.7 g/dL (6.4-8.2)
[2022-01-19 17:09] LABS: Urine Blood Negative (Negative); Urine Glucose Negative (Negative); Urine Protein Negative (Negative); Urine Specific Gravity 1.015 (1.005-1.030)
--- NOTE | 2022-01-19 18:45 | RAD REPORT ---
EXAM DESCRIPTION: CT - Abdomen Pelvis W Contrast - 01/19/2022 6:22 pm CLINICAL HISTORY: Abdominal pain COMPARISON: 2013 TECHNIQUE: Computed axial tomography of the abdomen pelvis was obtained. 100 cc Isovue-300 was admin istered intravenously. Oral contrast was not requested which limits evaluation of bowel and appendix All CT scans are performed using dose optimization technique as appropriate and may include automated exposure control or mA/KV adjustment according to patient size. FINDINGS: Mild fatty liver Spleen, adrenals and kidneys unremarkable 3.7 centimeter cystic mass is present within pancreatic uncinate. It contains septations. Moderate amount stool within the colon. Cholecystectomy. No adnexal mass. There is no evidence of diverticulitis. Normal appendix IMPRESSION: 3.7 centimeters cystic mass pancreatic uncinate process probably a cystic neoplasm. MRI would helpful for further evaluation
--- NOTE | 2022-01-19 20:17 | RAD REPORT ---
EXAM DESCRIPTION: CT - Head Brain Wo Cont - 01/19/2022 8:01 pm CLINICAL HISTORY: Brain neoplasm COMPARISON: May 2021 TECHNIQUE: Computed axial tomography of the head was obtained. IV contrast was not requested. All CT scans are performed using dose optimization technique as appropriate and may include automated exposure control or mA/KV adjustment according to patient size. FINDINGS: Left craniotomy. Large area of cystic encephalomalacia left frontal lobe. Mild enlargement of a 3.8 centimeter mass which abuts the anterior falx. Contains a few calcifications. Low-density within the right frontal lobe white matter is stable. An intracranial bleed is not noted. Mild dilatation of the fourth, third and lateral ventricles Fluid within the sinuses/ mastoids is not seen. IMPRESSION: 3.8 centimeter mass which abuts anterior falx has mildly enlarged from the prior exam Mild hydrocephalus
--- NOTE | 2022-01-19 21:57 | ER ---
Nurse's Notes [facility] Name: Clemencia Terry Age: 66 yrs Sex: Female : 1955 Arrival Date: 01/19/2022 Time: 12:41 Bed 7 Private MD: Diagnosis: Nausea with vomiting, unspecified;Weakness Presentation: 01/19 12:41 Chief complaint: EMS states: care home called for N/V for the last three days and [facility] states that she has been declining over the last two weeks. Coronavirus screen: Vaccine status: Patient reports receiving the 2nd dose of the covid vaccine. Ebola Screen: Patient negative for fever greater than or equal to 101.5 degrees Fahrenheit, and additional compatible Ebola Virus Disease symptoms Patient denies exposure to infectious person. Patient denies travel to an Ebola-affected area in the 21 days before illness onset. Initial Sepsis Screen: Does the patient meet any 2 criteria? Systolic BP < 90 mmHg. No. Patient's initial sepsis screen is negative. Does the patient have a suspected source of infection? No. Patient's initial sepsis screen is negative. Risk Assessment: Do you want to hurt yourself or someone else? Patient reports no desire to harm self or others. Onset of symptoms was January 17, 2022. 12:41 Method Of Arrival: EMS: [facility] 12:41 Acuity: KAUSHIK 3 [facility] Triage Assessment: 12:47 General: Appears in no apparent distress. Behavior is calm. Pain: Denies pain. [facility] Historical: - Allergies: 12:47 No Known Allergies; jh6 - PMHx: 12:47 convulsions; Depression; GERD; Hyperlipidemia; Hypertensive disorder; Malignant [facility] neoplasm of brain; mental disorder; TIA; - Immunization history:: Adult Immunizations. - Social history:: Smoking status: unknown. Screenin:48 Abuse screen: Denies threats or abuse. Denies injuries from another. Nutritional [facility] screening: Has had N/V for 3 or more days. Tuberculosis screening: No symptoms or risk factors identified. Fall Risk Secondary diagnosis (15 points) seizures, TIA, impaired mobility, CVA, IV access (20 points). Assessment: 12:48 General: see triage note. . [facility] 13:37 Reassessment: IV in r forearm infiltrated-removed, pressure bandage applied. jg9 14:00 Reassessment: Patient appears in no apparent distress at this time. No changes from jg9 previously documented assessment. Patient and/or family updated on plan of care and expected duration. Pain level reassessed. Patient is alert, oriented x 3, equal unlabored respirations, skin warm/dry/pink. 15:00 Reassessment: No changes from previously documented assessment. Patient and/or family jg9 updated on plan of care and expected duration. Pain level reassessed. Patient is alert, oriented x 3, equal unlabored respirations, skin warm/dry/pink. 16:00 Reassessment: No changes from previously documented assessment. Patient and/or family jg9 updated on plan of care and expected duration. Pain level reassessed. Patient is alert, oriented x 3, equal unlabored respirations, skin warm/dry/pink. 17:00 Reassessment: No changes from previously documented assessment. Patient and/or family jg9 updated on plan of care and expected duration. Pain level reassessed. Patient is alert, oriented x 3, equal unlabored respirations, skin warm/dry/pink. straight cath to get urine sample. 19:14 Reassessment: Patient and/or family updated on plan of care and expected duration. Pain vc1 level reassessed. Patient is alert, oriented x 3, equal unlabored respirations, skin warm/dry/pink. 20:43 Reassessment: No changes from previously documented assessment. Patient and/or family vc1 updated on plan of care and expected duration. Pain level reassessed. 22:06 Reassessment: Patient laying with eyes closed, resting comfortably. vc1 23:20 Reassessment: No changes from previously documented assessment. vc1 01/20 01:33 Reassessment: No changes from previously documented assessment. Patient and/or family vc1 updated on plan of care and expected duration. Pain level reassessed. Vital Signs: 01/19 12:41 BP 164 / 79; Pulse 67; Resp 18; Temp 97.7(A); Pulse Ox 92% on R/A; Weight 70.31 kg; jh6 Height 5 ft. 5 in. (165.10 cm); Pain 0/10; 12:45 BP 158 / 65; Pulse 64; Resp 14 S; Pulse Ox 90% on R/A; jg9 13:30 BP 167 / 54; Pulse 65; Resp 17 S; Pulse Ox 94% on R/A; jg9 14:30 BP 174 / 55; Pulse 64; Resp 13 S; Pulse Ox 95% on R/A; jg9 15:15 BP 149 / 62; Pulse 64; Resp 12 S; Pulse Ox 95% on R/A; jg9 16:00 BP 135 / 57; Pulse 63; Resp 10 S; Pulse Ox 96% ; jg9 17:00 BP 121 / 70; Pulse 64; Resp 12 S; Pulse Ox 96% on R/A; jg9 17:45 BP 128 / 52; Pulse 64; Resp 15 S; Pulse Ox 95% on R/A; jg9 19:14 BP 135 / 69; Pulse 66; Resp 15; Pulse Ox 100% ; vc1 20:43 BP 99 / 87; Pulse 71; Resp 20; Pulse Ox 100% ; vc1 22:07 BP 111 / 51; Pulse 67; Resp 12; Pulse Ox 99% ; vc1 23:21 BP 120 / 67; Pulse 66; Resp 19; Pulse Ox 100% on R/A; vc1 01/20 00:30 BP 150 / 68; Pulse 67; Resp 16; Pulse Ox 97% ; vc1 01:15 BP 153 / 68; Pulse 66; Resp 12; Pulse Ox 98% ; vc1 01/19 12:41 Body Mass Index 25.79 (70.31 kg, 165.10 cm) [facility] ED Course: 01/19 12:41 Patient arrived in ED. 6 12:41 Radha Mccoy, CAMPBELL is Primary Nurse. 6 12:47 Triage completed. jh6 12:48 Arm band placed on right wrist. 6 12:53 Alaina Gruber FNP-C is [facility]. kb 12:53 Wm Blank MD is Attending Physician. kb 12:53 Bed in low position. Call light in reach. Side rails up X2. 6 12:53 No provider procedures requiring assistance completed. Inserted saline lock: 22 gauge jh6 in left hand, using aseptic technique. 14:00 Inserted saline lock: 22 gauge in left wrist, using aseptic technique. jg9 15:34 No apparent distress. Resting quietly. jg9 18:24 CT Abd/Pelvis - IV Contrast Only In Process Unspecified. EDMS 19:57 Rosmery Terry (daughter) [phone]. mw2 20:03 CT Head Brain wo Cont In Process Unspecified. EDMS 21:56 Sheyla Garcia MD is Hospitalizing Provider. kb 22:27 SARS RAPID Sent. vc1 01/20 04:00 Patient admitted, IV remains in place. vc1 07:18 Primary Nurse role handed off by Radha Mccoy, CAMPBELL 2 07:18 Nia Nash, RN is Primary Nurse. tw2 Administered Medications: 01/19 13:28 Drug: NS 0.9% 1000 ml Route: IV; Rate: 1 bolus; Site: right forearm; 6 17:11 Follow up: IV Status: Completed infusion; IV Intake: 1000ml 9 13:28 Drug: Zofran (Ondansetron) 4 mg Route: IVP; Site: right forearm; 6 14:30 Follow up: Response: No adverse reaction 9 22:20 Drug: NS 0.9% 1000 ml Route: IV; Rate: 125 ml/hr; Site: left hand; vc1 01/21 18:47 Follow up: Response: No adverse reaction; IV Status: Completed infusion; IV Intake: kr3 1000ml Medication: 01/19 12:53 VIS not applicable for this client. [facility] Intake: 17:11 IV: 1000ml; Total: 1000ml. 9 01/21 18:47 IV: 1000ml; Total: 2000ml. kr3 Outcome: 01/19 21:56 Decision to Hospitalize by Provider. kb 01/20 04:00 Admitted to ER Hold. Please see [facility] for further documentation. vc1 Condition: good Instructed on the need for admit. 01/21 20:57 Patient left the ED. mw2 Signatures: Dispatcher [employer] EDMS Alaina Gruber, CALL CENTER REPRESENTATIVE-C CALL CENTER REPRESENTATIVE-Ckb Nia Nash, RN RN tw2 Rakesh Rubio mw2 Radha Mccoy, CAMPBELL HIGHTOWER 6 Radha Moraes RN RN jg9 Shannon Shepard RN RN vc1 Judith Rangel RN RN kr3 Corrections: (The following items were deleted from the chart) 01/19 17:13 14:00 Reassessment: No changes from previously documented assessment. Patient and/or jg9 family updated on plan of care and expected duration. Pain level reassessed. Patient is alert, oriented x 3, equal unlabored respirations, skin warm/dry/pink. jg9 17:14 16:00 Reassessment: No changes from previously documented assessment. Patient and/or jg9 family updated on plan of care and expected duration. Pain level reassessed. Patient is alert, oriented x 3, equal unlabored respirations, skin warm/dry/pink. straight cath to get urine sample jg9
--- NOTE | 2022-01-19 21:58 | EDPHYS ---
Physician Documentation [facility] Name: Clemencia Terry Age: 66 yrs Sex: Female : 1955 Arrival Date: 01/19/2022 Time: 12:41 Bed 7 Private MD: ED Physician Wm Blank HPI: 01/19 17:55 This 66 yrs old Black Female presents to ER via EMS with complaints of nausea and kb vomiting. 17:55 The patient presents to the emergency department with nausea, vomiting. Onset: The kb symptoms/episode began/occurred 3 day(s) ago. Possible causes: unknown. The symptoms are aggravated by nothing. The symptoms are alleviated by nothing. Associated signs and symptoms: Pertinent positives: nausea, vomiting, Pertinent negatives: fever. Severity of symptoms: At their worst the symptoms were moderate in the emergency department the symptoms are unchanged. The patient has not experienced similar symptoms in the past. The patient has not recently seen a physician. alf staff called 911 for nausea and vomiting that has been going on for 3 days. Reports pt has been declining over the last 2 weeks as well, decreased appetite. Denies fever. . Historical: - Allergies: 12:47 No Known Allergies; jh6 - PMHx: 12:47 convulsions; Depression; GERD; Hyperlipidemia; Hypertensive disorder; Malignant jh6 neoplasm of brain; mental disorder; TIA; - Immunization history:: Adult Immunizations. - Social history:: Smoking status: unknown. ROS: 17:51 Constitutional: Negative for fever, chills, and weight loss. kb 17:51 Unable to obtain ROS due to pt does not speak at baseline, unable to obtain ROS. kb Exam: 17:55 Constitutional: This is a well developed, well nourished patient who is awake, alert, kb and in no acute distress. Head/Face: Normocephalic, atraumatic. ENT: Moist Mucous membranes Cardiovascular: Regular rate and rhythm with a normal S1 and S2. No gallops, murmurs, or rubs. No pulse deficits. Respiratory: Respirations even and unlabored. No increased work of breathing. Talking in full sentences Abdomen/GI: Soft, non-tender. No distention Skin: Warm, dry with normal turgor. Normal color. 17:55 Musculoskeletal/extremity: Exam is negative for acute changes. 17:55 Neuro: Exam negative for acute changes. 17:57 Neuro: Mentation: able to follow commands, Motor: moves all fours. Vital Signs: 12:41 BP 164 / 79; Pulse 67; Resp 18; Temp 97.7(A); Pulse Ox 92% on R/A; Weight 70.31 kg; 6 Height 5 ft. 5 in. (165.10 cm); Pain 0/10; 12:45 BP 158 / 65; Pulse 64; Resp 14 S; Pulse Ox 90% on R/A; jg9 13:30 BP 167 / 54; Pulse 65; Resp 17 S; Pulse Ox 94% on R/A; jg9 14:30 BP 174 / 55; Pulse 64; Resp 13 S; Pulse Ox 95% on R/A; jg9 15:15 BP 149 / 62; Pulse 64; Resp 12 S; Pulse Ox 95% on R/A; jg9 16:00 BP 135 / 57; Pulse 63; Resp 10 S; Pulse Ox 96% ; jg9 17:00 BP 121 / 70; Pulse 64; Resp 12 S; Pulse Ox 96% on R/A; jg9 17:45 BP 128 / 52; Pulse 64; Resp 15 S; Pulse Ox 95% on R/A; jg9 19:14 BP 135 / 69; Pulse 66; Resp 15; Pulse Ox 100% ; vc1 20:43 BP 99 / 87; Pulse 71; Resp 20; Pulse Ox 100% ; vc1 22:07 BP 111 / 51; Pulse 67; Resp 12; Pulse Ox 99% ; vc1 23:21 BP 120 / 67; Pulse 66; Resp 19; Pulse Ox 100% on R/A; vc1 01/20 00:30 BP 150 / 68; Pulse 67; Resp 16; Pulse Ox 97% ; vc1 01:15 BP 153 / 68; Pulse 66; Resp 12; Pulse Ox 98% ; vc1 01/19 12:41 Body Mass Index 25.79 (70.31 kg, 165.10 cm) [facility] MDM: 01/19 12:53 Patient medically screened. 17:51 Data reviewed: vital signs, nurses notes. Data interpreted: Pulse oximetry: on room air kb is 96 %. Interpretation: normal. 20:51 ED course: Discussed findings with pt's daughter. She is going to talk to siblings kb about findings and call back with decision about next steps in care. . 22:08 Counseling: I had a detailed discussion with the patient and/or guardian regarding: the kb historical points, exam findings, and any diagnostic results supporting the discharge/admit diagnosis, lab results, radiology results, the need for further work-up and treatment in the hospital. Physician consultation: Taylor VIEIRA was contacted at 22:00, regarding admission, and will see patient in ED. ED course: Patient's daughter called back states she spoke with other siblings and they have decided they wanted patient admitted here for hydration and nausea control with a consult to social worker masters for tomorrow to discuss hospice placement. [facility] did not want treatment for pancreatic mass. [facility] patient is not receiving treatment for brain mass and and has been declining over time.. 01/19 13:01 Order name: CBC with Diff; Complete Time: 13:51 kb 01/19 13:01 Order name: CMP; Complete Time: 17:06 kb 01/19 13:01 Order name: Lipase; Complete Time: 17:06 kb 01/19 13:37 Order name: CBC Smear Scan; Complete Time: 13:51 EDMS 01/19 17:09 Order name: Urine Dipstick-Ancillary; Complete Time: 17:10 EDMS 01/19 22:19 Order name: SARS RAPID; Complete Time: 23:06 kb 01/20 05:06 Order name: CBC with Automated Diff; Complete Time: 05:26 EDMS 01/20 05:23 Order name: CBC Smear Scan; Complete Time: 05:26 EDMS 01/20 08:47 Order name: Basic Metabolic Panel; Complete Time: 18:25 EDMS 01/20 08:47 Order name: Phosphorus; Complete Time: 18:25 EDMS 01/20 08:47 Order name: Magnesium; Complete Time: 18:25 EDMS 01/21 04:40 Order name: Urinalysis; Complete Time: 05:02 EDMS 01/21 08:19 Order name: Comprehensive Metabolic Panel; Complete Time: 17:28 EDMS 01/21 08:19 Order name: Magnesium; Complete Time: 17:28 EDMS 01/19 13:01 Order name: CT Abd/Pelvis - IV Contrast Only; Complete Time: 18:49 kb 01/19 13:01 Order name: IV Saline Lock; Complete Time: 13:02 kb 01/19 13:01 Order name: Labs collected and sent; Complete Time: 13:22 kb 01/19 13:01 Order name: Urine Dipstick-Ancillary (obtain specimen); Complete Time: 17:11 kb 01/19 14:05 Order name: Labs - recollect needed: lavender only; Complete Time: 16:27 ss 01/19 18:52 Order name: CT Head Brain wo Cont; Complete Time: 20:20 dh3 01/20 07:15 Order name: Labs - recollect needed: recollect green top again; Complete Time: 19:11 bd 01/21 08:04 Order name: Labs - recollect needed: recollect green and lavender; Complete Time: 18:46 bd 01/21 09:18 Order name: Labs - recollect needed: recollect cbc; Complete Time: 18:46 bd 01/21 10:23 Order name: CBC with Automated Diff; Complete Time: 17:28 EDMS 01/21 10:39 Order name: Manual Differential; Complete Time: 17:28 EDMS Administered Medications: 13:28 Drug: NS 0.9% 1000 ml Route: IV; Rate: 1 bolus; Site: right forearm; [facility] 17:11 Follow up: IV Status: Completed infusion; IV Intake: 1000ml [facility] 13:28 Drug: Zofran (Ondansetron) 4 mg Route: IVP; Site: right forearm; [facility] 14:30 Follow up: Response: No adverse reaction 9 22:20 Drug: NS 0.9% 1000 ml Route: IV; Rate: 125 ml/hr; Site: left hand; [facility] 01/21 18:47 Follow up: Response: No adverse reaction; IV Status: Completed infusion; IV Intake: kr3 1000ml Disposition Summary: 01/19/22 21:56 Hospitalization Ordered Hospitalization Status: Observation kb Provider: Sheyla Garcia Condition: Stable kb Problem: new kb Symptoms: are unchanged kb Bed/Room Type: Standard kb Location: [facility] ER HOLD(01/19/22 23:30) Room Assignment: ERHOLD-(01/19/22 23:30) cg Diagnosis - Nausea with vomiting, unspecified kb - Weakness kb Forms: - Medication Reconciliation Form kb - SBAR form kb Addendum: 01/24/2022 16:22 Co-signature as Attending Physician, Wm Blank MD. r n Signatures: Dispatcher [employer] EDMS Alaina Gruber, IMCU NURSE-C IMCU NURSE-Ckb Elma Hinojosa Roman, MD MD rn Smirch, Shelby, RN RN Divya Diego RN RN Radha Solorzano, CAMPBELL RN jh6 Shannon Shepard RN RN vc1 aTylor Terry, PA PA sb3 Radha Moraes RN jg9 Judith Rangel RN kr3 Corrections: (The following items were deleted from the chart) 01/19 17:54 17:51 Abdomen/GI: Positive for nausea and vomiting, Negative for abdominal pain, kb diarrhea, constipation, kb 17:54 17:51 All other systems are negative, kb kb 23:30 21:56 Telemetry/MedSurg (observation) [facility] 23:30 21:56 [facility]
[2022-01-19 22:53] LABS: SARS-CoV-2 Antigen Rapid Res Negative (Negative)
--- NOTE | 2022-01-19 23:40 | P.HP ---
Certification for Inpatient Patient admitted to: Observation With expected LOS: <2 Midnights Patient will require the following post-hospital care: None Practitioner: I am a practitioner with admitting privileges, knowledge of patient current condition, hospital course, and medical plan of care. 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 Per [facility], patient has been "declining" over the past few weeks and has been vomiting the past 3 days. Patient is nonverbal but does follow commands and moves all 4 extremities. Her labs in the ED are unremarkable. Urine negative. Vital signs stable. CT abd/pelv showed 3.7 cm cystic mass pancreatic uncinate process probably a cystic neoplasm. CT head shows 3.8 centimeter mass which abuts anterior falx has mildly enlarged from the prior exam. Mild hydrocephalus. She was given fluids and zofran with improvement in symptoms. Spoke with patient's daughter who reports that she has history of glioblastoma that was previously operated on but has now returned. They were told it would not be responsive to treatment. As of a few mo nths ago, patient lost the ability to speak and has been eating less. Family was informed of CT results and understand prognosis. They wish for patient to be admitted with supportive measures and for arrangement of hospice. Allergies No Known Drug Allergies Allergy (Verified 05/14/14 20:24) Unknown Home medications list reviewed: Yes Home Medications: Atorvastatin Calcium [Lipitor*] 20 mg PO BEDTIME 12/02/13 Aspirin Chewable [Aspirin Chewable*] 81 mg PO DAILY 06/29/18 Docusate Sodium [Move It Along] 100 mg PO DAILY 06/02/21 Fenofibrate [Tricor*] 145 mg PO DAILY 06/02/21 Levetiracetam [Keppra] 500 mg PO BID 06/02/21 Loperamide HCl [Imodium A-D] 2 mg PO Q6HR PRN 06/02/21 Metoprolol Tartrate [Lopressor*] 25 mg PO BID 6AM 6PM 06/02/21 Omeprazole [Prilosec] 40 mg PO DAILY 06/02/21 - Past Medical/Surgical History Diabetic: No -: TIA -: Cutaneous Candidiasis -: Cancer of Brain -: Hyperlipidemia -: HTN -: Seizures -: Brain tumor removal -: gall bladder stones removed -: tubal ligation Psychosocial/ Personal History: Patient lives in a [facility]. - Family History Father -: Heart disease, Diabetes, Kidney disease, Other (see notes) Notes: Alzheimers Mother -: Hypertension Brother -: Heart disease Notes: cardiac stent - Social History Smoking Status: Never smoker Alcohol use: No CD- Drugs: No Caffeine use: No Place of Residence: Assisted Review of Systems General: Weakness Gastrointestinal: Nausea, Vomiting Physical Examination - Physical Exam General: Alert, In no apparent distress HEENT: Atraumatic, PERRLA, EOMI, Sclerae nonicteric Neck: Supple, 2+ carotid pulse no bruit, No LAD, Without JVD or thyroid abnormality Respiratory: Clear to auscultation bilaterally, Normal air movement Cardiovascular: Regular rate/rhythm, Normal S1 S2 Gastrointestinal: Normal bowel sounds, No tenderness Musculoskeletal: No tenderness Integumentary: No rashes Neurological: Normal strength at 5/5 x4 extr, Normal tone, Sensation intact - Studies Laboratory Data (last 24 hrs) 01/19/22 16:25: Sodium 143, Potassium 3.9, BUN 9, Creatinine 0.43 L, Glucose 106, Total Bilirubin 0.3, AST 12 L, ALT 17, Alkaline Phosphatase 40 L, Lipase 76 01/19/22 13:15: WBC 6.30 D, Hgb 12.7 D, Hct 39.6 D, Plt Count 266 D Assessment and Plan - Problems (Diagnosis) (1) Hypertension Current Visit: Yes Status: Chronic Qualifiers: Hypertension type: primary hypertension Qualified Code(s): I10 - Essential (primary) hypertension (2) Aphasia Current Visit: Yes Status: Chronic (3) Brain tumor Current Visit: Yes Status: Chronic (4) History of CVA (cerebrovascular accident) Current Visit: Yes Status: Chronic (5) Nausea and vomiting Current Visit: Yes Status: Acute Qualifiers: Vomiting type: unspecified Qualified Code(s): R11.2 - Nausea with vomiting, unspecified - Plan -Continue IV fluids and zofran as needed -Clear liquid diet. Advance as tolerated -financial services manager consult in place -Monitor and replete electrolytes per protocol -Reconcile and continue home medications -Lovenox for VTE ppx -Full code Discharge Plan: Assisted Plan to discharge in: 24 Hours - Advance Directives Does patient have a Living Will: No Does patient have a Durable POA for Healthcare: Yes - Code Status/Comfort Care Code Status Assessed: Yes (Full) Critical Care: No Time Spent Managing Pts Care (In Minutes): 50
[2022-01-20] MEDS ORDERED: ONDANSETRON 4 MG/2 ML VIAL IV PRN (03:25)
[2022-01-20] MEDS ORDERED: ACETAMINOPHEN 500 MG TAB PO PRN (03:25)
[2022-01-20] MEDS: NA CHLORIDE 0.9% 1,000 ML IV SCH ×2 (03:25→07:40)
[2022-01-20 03:34] VITALS: BMI 25.7
[2022-01-20 05:05] LABS: Absolute Lymphocytes (CBC) 1.2 K/uL (0.7-4.9); Hematocrit 33.1 % (36.0-45.0); Lymphocytes % 16.3 % (15.3-44.8); MCV 79.9 fL (80-100); MPV 9.1 fL (7.6-11.3); RBC Red Blood Cell Count 4.14 M/uL (3.86-4.86)
[2022-01-20 05:23] LABS: Blood Morphology Comment NOT SEEN (NOT SEEN); Platelet Estimate ADEQ; White Blood Cell Scan OK (OK)
[2022-01-20] MEDS ORDERED: NA CHLORIDE 0.9% 1,000 ML ONE ×3 (07:40→21:27)
[2022-01-20 08:40] LABS: Phosphorus 2.7 mg/dL (2.5-4.9)
[2022-01-20 08:46] LABS: Magnesium 2.1 mg/dL (1.8-2.4); Potassium 3.9 mmol/L (3.5-5.1)
[2022-01-20] MEDS ORDERED: ENOXAPARIN 40 MG/0.4 ML SQ ONE (08:57)
[2022-01-20] MEDS: ENOXAPARIN 40 MG/0.4 ML SQ SCH (09:27)
[2022-01-20] MEDS ORDERED: ONDANSETRON 4 MG/2 ML VIAL ONE (18:01)
--- NOTE | 2022-01-20 23:08 | P.PN ---
Subjective Date of Service: 01/20/22 patient with pancreatic cancer. Most likely cause of her weakness. Patient with glioblastoma as well. Patient with remission for over 20 years. Her clinical symptoms have declined over the last couple years. She is at the longterm. She is nonambulatory. She does eat a pureed diet. Will continue this and see how she tolerates that. Review of Systems 10-point ROS is otherwise unremarkable Physical Examination - Vital Signs Temperature: 97.8 F Blood Pressure: 145/74 Pulse: 104 Respirations: 18 Pulse Ox (%): 99 - Physical Exam General: Alert, In no apparent distress, Other ( Aphasic) HEENT: Atraumatic, PERRLA, EOMI Neck: Supple, JVD not distended Respiratory: Clear to auscultation bilaterally, Normal air movement Cardiovascular: Regular rate/rhythm, Normal S1 S2 Gastrointestinal: Normal bowel sounds, No tenderness Musculoskeletal: No tenderness Integumentary: No rashes Neurological: Sensation intact, Cranial nerves 3-12 intact, Abnormal speech - Studies Medications List Reviewed: Yes Assessment & Plan - Problems (Diagnosis) (1) Pancreatic cancer Current Visit: Yes Status: Acute (2) Nausea and vomiting Current Visit: Yes Status: Acute Qualifiers: Vomiting type: unspecified Qualified Code(s): R11.2 - Nausea with vomiting, unspecified (3) History of CVA (cerebrovascular accident) Current Visit: Yes Status: Chronic (4) Hypertension Current Visit: Yes Status: Chronic Qualifiers: Hypertension type: primary hypertension Qualified Code(s): I10 - Essential (primary) hypertension (5) Ataxic gait Onset Date: 05/14/14 Current Visit: No Status: Acute - Plan Plan: 1. MRI unable to be completed as patient is not able to take a deep breath 2. Pureed diet 3. Labs including CA 19-9 4. Arrange for discharge planning 5. Gi DVT prophylaxis Discharge Plan: Home Plan to discharge in: 24 Hours - Advance Directives Does patient have a Living Will: No Does patient have a Durable POA for Healthcare: No - Code Status/Comfort Care Code Status Assessed: Yes Code Status: Full Code Critical Care: No Time Spent Managing PTS Care (In Minutes): 35
[2022-01-20] MEDS ORDERED: ACETAMINOPHEN 650MG/RECT SUPP PR PRN (23:54)
[2022-01-21] MEDS: NA CHLORIDE 0.9% 1,000 ML IV SCH (03:15)
[2022-01-21 04:40] LABS: Urine Bilirubin Negative (Negative); Urine Blood 3+ (Negative); Urine Clarity Clear (Clear); Urine Color Yellow (Yellow); Urine Glucose Negative (Negative); Urine Protein 2+ (Negative); Urine pH 7.5 (5.0-7.0)
[2022-01-21 04:47] LABS: Urine Bacteria >50 /HPF (<20); Urine RBC >50 /HPF (None Seen)
[2022-01-21] MEDS ORDERED: CEFTRIAXONE 1000 MG/VIAL ONE (08:10)
[2022-01-21] MEDS ORDERED: ENOXAPARIN 40 MG/0.4 ML SQ ONE (08:11)
[2022-01-21] MEDS ORDERED: NA CHLORIDE 0.9% 50 ML ONE (08:11)
[2022-01-21 08:19] LABS: Albumin 3.5 g/dL (3.4-5.0); Bilirubin Total 0.5 mg/dL (0.2-1.0); Magnesium 1.9 mg/dL (1.8-2.4); Potassium 3.6 mmol/L (3.5-5.1); Protein, Total 7.1 g/dL (6.4-8.2)
[2022-01-21] MEDS: ENOXAPARIN 40 MG/0.4 ML SQ SCH (09:00)
[2022-01-21] MEDS ORDERED: CEFTRIAXONE 1,000 MG in NA CHLORIDE 0.9% 50 ML IVPB SCH (09:00)
[2022-01-21 10:07] LABS: Lymphocytes % 8.4 % (15.3-44.8); MCV 78.5 fL (80-100); MPV 9.1 fL (7.6-11.3); RBC Red Blood Cell Count 4.59 M/uL (3.86-4.86)
[2022-01-21 10:38] LABS: Blood Morphology Comment NOT SEEN (NOT SEEN); Platelet Estimate ADEQ; Smudge Cells FEW
--- NOTE | 2022-01-21 13:22 | P.DS ---
Discharge Date: 01/21/22 Primary Care Provider: Carlo Disposition: TRANSFER TO [facility] Discharge Condition: FAIR Reason for Admission: Intractable Vomiting - Problems (1) Pancreatic cancer Current Visit: Yes Status: Acute (2) Nausea and vomiting Current Visit: Yes Status: Acute Qualifiers: Vomiting type: unspecified Qualified Code(s): R11.2 - Nausea with vomiting, unspecified (3) History of CVA (cerebrovascular accident) Current Visit: Yes Status: Chronic (4) Hypertension Current Visit: Yes Status: Chronic Qualifiers: Hypertension type: primary hypertension Qualified Code(s): I10 - Essential (primary) hypertension (5) Ataxic gait Onset Date: 05/14/14 Current Visit: No Status: Acute Brief History of Present Illness: 66-year-old female who came into the hospital with persistent nausea. Patient was found to have a pancreatic mass. She been started on a pured diet and she is tolerating it. Prognosis is very poor. Spoke with family hospice care. Continue with supportive care at discharge. Hospital Course: Patient's family did not want anything aggressive. She has survived gliobla stoma. She probably has pancreatic cancer from imaging studies. Prognosis remains poor. Family did not want anything aggressive performed. We will do tube recs. She had a CA 19-9 done. Follow-up with [facility] physician and they may need to arrange for hospice care. Vital Signs/Physical Exam: Temp Pulse Resp BP Pulse Ox 98.4 F 83 16 134/75 99 01/21/22 12:00 01/21/22 12:00 01/21/22 12:00 01/21/22 12:00 01/21/22 12:00 General: Alert, In no apparent distress, Oriented x3 Laboratory Data at Discharge: WBC 11.30 K/uL (4.3-10.9) H D 01/21/22 09:45 Hgb 11.8 g/dL (12.0-15.0) L 01/21/22 09:45 Hct 36.0 % (36.0-45.0) 01/21/22 09:45 Plt Count 199 K/uL (152-406) 01/21/22 09:45 Sodium 140 mmol/L (136-145) 01/21/22 07:48 Potassium 3.6 mmol/L (3.5-5.1) 01/21/22 07:48 BUN 6 mg/dL (7-18) L 01/21/22 07:48 Creatinine 0.47 mg/dL (0.55-1.3) L 01/21/22 07:48 Glucose 136 mg/dL (74-106) H 01/21/22 07:48 Phosphorus 2.7 mg/dL (2.5-4.9) 01/20/22 08:12 Magnesium 1.9 mg/dL (1.8-2.4) 01/21/22 07:48 Total Bilirubin 0.5 mg/dL (0.2-1.0) 01/21/22 07:48 AST 21 U/L (15-37) 01/21/22 07:48 ALT 22 U/L (12-78) 01/21/22 07:48 Alkaline Phosphatase 58 U/L (45-117) 01/21/22 07:48 Lipase 76 U/L (73-393) 01/19/22 16:25 Home Medications: Atorvastatin Calcium [Lipitor*] 20 mg PO BEDTIME 12/02/13 Aspirin Chewable [Aspirin Chewable*] 81 mg PO DAILY 06/29/18 Docusate Sodium [Move It Along] 100 mg PO DAILY 06/02/21 Fenofibrate [Tricor*] 145 mg PO DAILY 06/02/21 Levetiracetam [Keppra] 500 mg PO BID 06/02/21 Metoprolol Tartrate [Lopressor*] 25 mg PO BID 6AM 6PM 06/02/21 Famotidine [Pepcid*] 20 mg PO DAILY 01/21/22 Metoclopramide [Reglan] 5 mg PO AC #90 tab 01/21/22 Ondansetron [Zofran] 4 mg PO Q6H PRN #30 tab 01/21/22 New Medications: Metoclopramide [Reglan] 5 mg PO AC #90 tab Ondansetron [Zofran] 4 mg PO Q6H PRN #30 tab PRN Reason: Nausea / Vomiting Physician Discharge Instructions: OK TO DC IV AND DC TO [facility] FOLLOW-UP WITH PRIMARY CARE PROVIDER IN 1-2 DAYS MAY BENEFIT FROM HOSPICE CARE FOR PANCREATIC CANCER CALL DR. DYER AT [phone] IF ANY QUESTIONS REGARDING HOSPITAL STAY. PLEASE CALL THE FLOOR AT [phone] IF ANY MEDICATION OR NURSING QUESTIONS. Diet: PUREED Activity: Fall precautions Followup: NONE,NONE [Primary Care Provider] - Time spent managing pt's care (in minutes): 35
[2022-01-21] MEDS ORDERED: METOPROLOL TAR 25 MG TAB PO SCH (18:00)
[2022-01-21] MEDS ORDERED: ATORVASTATIN 20 MG TAB PO SCH (21:00)
[2022-01-21] MEDS ORDERED: levETIRAcetam 500 MG TAB PO SCH (21:00)
[2022-01-21 23:42] VITALS: TEMP 97.7
[2022-01-22 00:25] VITALS: BP 153/68; O2SAT 98
[2022-01-22] MEDS ORDERED: ASPIRIN 81 MG CHEWABLE TABLET PO SCH (09:00)
[2022-01-22] MEDS ORDERED: FAMOTIDINE 20 MG TAB PO SCH (09:00)
[2022-01-22] MEDS ORDERED: DOCUSATE NA 100 MG CAP PO SCH (09:00)
[2022-01-22] MEDS ORDERED: DOCUSATE SODIUM 100 MG PO SCH (09:00)
[2022-01-22] MEDS ORDERED: FENOFIBRATE 160 MG TAB PO SCH (09:00)
== END 2022-01-21 20:55 ==
LOC: ER 12:40 → ERHOLD 23:16
PROVIDERS: ADMIT Hospitalist; ATTEND Hospitalist
DX: R11.2 Nausea with vomiting, unspecified (principal); C25.9 Malignant neoplasm of pancreas, unspecified; I10 Essential (primary) hypertension; R53.1 Weakness; R13.10 Dysphagia, unspecified; R47.01 Aphasia; G40.909 Epilepsy, unspecified, not intractable, without status epilepticus; G91.9 Hydrocephalus, unspecified; E78.5 Hyperlipidemia, unspecified; K21.9 Gastro-esophageal reflux disease without esophagitis; B37.89 Other sites of candidiasis; F32.A Depression, unspecified; Z86.73 Personal history of transient ischemic attack (TIA), and cerebral infarction without residual deficits; Z79.82 Long term (current) use of aspirin; Z79.899 Other long term (current) drug therapy; Z20.822 Contact with and (suspected) exposure to COVID-19; Z82.49 Family history of ischemic heart disease and other diseases of the circulatory system; Z83.3 Family history of diabetes mellitus
CPT/HCPCS: 36415; 70450; 74177; 80048; 80053; 81001; 81003; 83690; 83735; 84100; 85025; 86301; 87077; 87086; 87088; 87186; 87811; 96361; 96374; 99285; G0378; J1650; J2405; J7030; Q9967